=== PATIENT | female | born 1960 | race Caucasian/White ===

== ENCOUNTER 2023-09-17 18:37 | Inpatient (IN) ==
[2023-09-17] MEDS ORDERED: SODIUM CHLORIDE 0.9% 1,000 ML IV ONE (18:51)
--- NOTE | 2023-09-17 18:52 | Emergency Department Note ---
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 The patient reports that she was in the shower and began to feel lightheaded but does not recall how long he may have been out. She denies any pain in her head neck, chest, back or abdomen. She simply reports ongoing sensation of feeling sick to her stomach. The patient is scheduled to have a PEG tube placed later this week to help manage her symptoms given her inability to maintain nutrition. Patient denies any fevers, cough, congestion, chest pain or shortness of breath. She reports she has been having ongoing diarrhea which is unchanged patient has any urinary symptoms. On my evaluation the patient is uncomfortable no acute distress, afebrile with blood pressure 90s/60s and vital signs otherwise stable. She appears clinically dry. Abdomen is nontender. She has no focal neurologic deficits. EKG without overt acute ischemia. Chest x-ray negative for acute cardio pulmonary process per my preliminary review. WBC, H/H and platelets within normal limits. ANC is within normal limits. There is lymphopenia 0.34. Creatinine 1.4, consistent the patient clinically d ry appearance. Chemistry without metabolic acidosis. Potassium 3.2 and magnesium 1.4 with IV repletion initiated. LFTs are unremarkable. High- sensitivity troponin 8.5, within normal limits. CPK within normal limits. TSH within normal limits. CT of the head negative for acute abnormalities. CT of cervical spine was also unremarkable. CT of the chest negative for PE or acute process otherwise. CT of the pelvis also negative for acute process. Upon evaluation patient was resting comfortably with some improvement though still weak and so the patient and daughter at the bedside agree with plan for admission for further management. Case was [place] [facility] [place] who will evaluate the patient for admission. Triage Nursing notes reviewed and agree them. Prior/outside medical records reviewed Vital Signs: reviewed Differential diagnosis: Vasovagal event, dehydration, infection, hypoglycemia, electrolyte abnormalities, cardiac sources, intracerebral event, pulmonary embolism, seizure, toxicologic, neurologic, as well as other pathologies. ER treatment provided: See below. Diagnostics interpreted by me: ECG: Normal sinus rhythm, 68 bpm, no ectopy, no overt ST elevation or depression, QTc 438, QRS 90 Cardiac Monitoring: An order for continuous cardiac monitoring was placed and demonstrated Normal sinus rhythm, 68 bpm, no ectopy Laboratory studies: See below Imaging studies: See below Consultation(s): Case was discussed with Dr. Elkins [facility] hospitalist, who will evaluate the patient for admission. 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 The patient reports that she was in the shower and began to feel lightheaded but does not recall how long he may have been out. She denies any pain in her head neck, chest, back or abdomen. She simply reports ongoing sensation of feeling sick to her stomach. The patient is scheduled to have a PEG tube placed later this week to help manage her symptoms given her inability to maintain nutrition. Patient denies any fevers, cough, congestion, chest pain or shortness of breath. She reports she has been having ongoing diarrhea which is unchanged patient has any urinary symptoms. ROS: See above HPI for pertinent positives & negatives. A total of 10 systems reviewed and were otherwise negative. VITALS:See Below PHYSICAL EXAMINATION: GENERAL: Awake, alert, fatigued-appearing, in no distress HENT: Normocephalic, atraumatic. Oropharynx with dry mucous membranes and otherwise unremarkable. EYES: Normal conjunctiva. Sclera non-icteric. EOMI. No nystamgus. PEARRL. NECK: Supple. No nuchal rigidity. FROM. No JVD. RESPIRATORY: Clear to auscultation. CARDIAC: Regular rate, normal rhythm. Extremities warm and well perfused. Pulses equal. ABDOMEN: Soft, non-distended. No tenderness to palpation. No rebound or guarding. No masses. RECTAL: Deferred. MUSCULOSKELETAL: Chest examination reveals no tenderness. The back is symmetrical on inspection without obvious abnormality. There is no CVA tenderness to palpation. No joint edema. LOWER EXTREMITIES: Calves are equal size bilaterally and non-tender. No edema. No discoloration. NEURO: Normal sensorium. No sensory or motor deficits noted. 5/5 strength and SILT x 4 extremities. Cerebellar function intact including [id number], alternating palms, [id number]. SKIN: No rash or jaundice noted. Calos Resendiz MD Past Med/Surg History Medical History Anemia blood count dropping Fatty liver GERD (gastroesophageal reflux disease) Kidney stones x2 current/no problems. Nausea Throat cancer and tongue cancer dx: Jun 2023. current chemo and radiation. Tremor Trouble swallowing mild improvement Surgical History History of colonoscopy History of esophagogastroduodenoscopy (EGD) History of laryngoscopy direct with biopsy of left tongue base mass-07/21/23-Dr. Cunningham History of repair of hiatal hernia x 2 History of total abdominal hysterectomy and bilateral salpingo-oophorectomy Family History Mother Alzheimer disease Father No problems noted. Sister No problems noted. Brother , Half sibling Heart disease Sister No problems noted. 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 [employer]; How many Children do You have: 4 Feels Safe at Home: Yes Childhood Exposure to Second-Hand Smoke: Yes (Dad smoked; ) Assistive Devices: Glasses Allergies Allergies Allergy/AdvReac Type Severity Reaction Status Date / Time No Known Allergies Allergy Verified 09/15/23 14:03 Home Meds Home Medications Medication Instructions Recorded Confirmed acetaminophen 325 mg tablet 325 mg PO QID PRN Pain 07/14/23 09/15/23 (Tylenol) omeprazole 20 mg capsule,delayed 20 mg PO QAM 07/14/23 09/15/23 release propranolol 60 mg tablet 60 mg PO QAM 07/14/23 09/15/23 Magic Mouthwash 300 mL mouthwash 10 ml mucous membrane UD PRN 09/15/23 09/15/23 dysphagia olanzapine 2.5 mg tablet 2.5 mg PO UD 09/15/23 09/15/23 ondansetron HCl 8 mg tablet 8 mg PO Q8 PRN n/v 09/15/23 09/15/23 Results & Data (ED) Vital Signs Vital Signs - 24 hr 09/17/23 18:41 09/17/23 18:46 09/17/23 18:46 Temperature 36.3 C L Temperature Source Oral Pulse Rate 72 Pulse Rate [Apical] Pulse Rate from SpO2 Sensor Pulse Rhythm Regular Pulse Rhythm [Apical] Pulse Strength Normal Pulse Strength [Apical] Respiratory Rate 20 Respiratory Effort / Characteristics Non-Labored Spontaneous Respiratory Depth Normal Respiratory Pattern Regular Blood Pressure 93/67 L Blood Pressure [Left Arm] Blood Pressure Mean 75 Blood Pressure Mean [Left Arm] Blood Pressure Position Sitting Blood Pressure Position [Left Arm] Pulse Oximetry 97 98 Oxygen Delivery Method Room Air Room Air Room Air Sepsis Recent Fever Within 48 Hours No Sepsis New/Unexplained Change in Mental Status No Sepsis Action Taken by Nursing No Action Required 09/17/23 19:19 09/17/23 19:20 09/17/23 18:55 Temperature Temperature Source Pulse Rate 66 Pulse Rate [Apical] Pulse Rate from SpO2 Sensor Pulse Rhythm Pulse Rhythm [Apical] Pulse Strength Pulse Strength [Apical] Respiratory Rate Respiratory Effort / Characteristics Non-Labored Respiratory Depth Normal Respiratory Pattern Blood Pressure Blood Pressure [Left Arm] Blood Pressure Mean Blood Pressure Mean [Left Arm] Blood Pressure Position Blood Pressure Position [Left Arm] Pulse Oximetry 97 Oxygen Delivery Method Room Air Sepsis Recent Fever Within 48 Hours Sepsis New/Unexplained Change in Mental Status Sepsis Action Taken by Nursing 09/17/23 18:56 09/17/23 19:00 09/17/23 19:10 Temperature Temperature Source Pulse Rate 71 70 71 Pulse Rate [Apical] Pulse Rate from SpO2 Sensor Pulse Rhythm Pulse Rhythm [Apical] Pulse Strength Pulse Strength [Apical] Respiratory Rate 21 18 17 Respiratory Effort / Characteristics Respiratory Depth Respiratory Pattern Blood Pressure Blood Pressure [Left Arm] Blood Pressure Mean Blood Pressure Mean [Left Arm] Blood Pressure Position Blood Pressure Position [Left Arm] Pulse Oximetry Oxygen Delivery Method Sepsis Recent Fever Within 48 Hours Sepsis New/Unexplained Change in Mental Status Sepsis Action Taken by Nursing 09/17/23 19:20 09/17/23 19:30 09/17/23 19:36 Temperature Temperature Source Pulse Rate 63 63 71 Pulse Rate [Apical] Pulse Rate from SpO2 Sensor 71 Pulse Rhythm Pulse Rhythm [Apical] Pulse Strength Pulse Strength [Apical] Respiratory Rate 18 20 19 Respiratory Effort / Characteristics Respiratory Depth Respiratory Pattern Blood Pressure Blood Pressure [Left Arm] Blood Pressure Mean Blood Pressure Mean [Left Arm] Blood Pressure Position Blood Pressure Position [Left Arm] Pulse Oximetry 100 Oxygen Delivery Method Sepsis Recent Fever Within 48 Hours Sepsis New/Unexplained Change in Mental Status Sepsis Action Taken by Nursing 09/17/23 19:36 09/17/23 19:40 09/17/23 19:50 Temperature Temperature Source Pulse Rate 72 73 Pulse Rate [Apical] Pulse Rate from SpO2 Sensor 72 73 Pulse Rhythm Pulse Rhythm [Apical] Pulse Strength Pulse Strength [Apical] Respiratory Rate 20 18 Respiratory Effort / Characteristics Respiratory Depth Respiratory Pattern Blood Pressure 114/68 Blood Pressure [Left Arm] Blood Pressure Mean 86 Blood Pressure Mean [Left Arm] Blood Pressure Position Blood Pressure Position [Left Arm] Pulse Oximetry 98 97 Oxygen Delivery Method Sepsis Recent Fever Within 48 Hours Sepsis New/Unexplained Change in Mental Status Sepsis Action Taken by Nursing 09/17/23 20:00 09/17/23 20:00 09/17/23 20:10 Temperature Temperature Source Pulse Rate 75 73 Pulse Rate [Apical] Pulse Rate from SpO2 Sensor 75 74 Pulse Rhythm Pulse Rhythm [Apical] Pulse Strength Pulse Strength [Apical] Respiratory Rate 16 14 Respiratory Effort / Characteristics Respiratory Depth Respiratory Pattern Blood Pressure 109/72 Blood Pressure [Left Arm] Blood Pressure Mean 78 Blood Pressure Mean [Left Arm] Blood Pressure Position Blood Pressure Position [Left Arm] Pulse Oximetry 98 99 Oxygen Delivery Method Sepsis Recent Fever Within 48 Hours Sepsis New/Unexplained Change in Mental Status Sepsis Action Taken by Nursing 09/17/23 20:20 09/17/23 20:47 09/17/23 20:50 Temperature Temperature Source Pulse Rate 70 70 67 Pulse Rate [Apical] Pulse Rate from SpO2 Sensor 70 71 69 Pulse Rhythm Pulse Rhythm [Apical] Pulse Strength Pulse Strength [Apical] Respiratory Rate 24 14 19 Respiratory Effort / Characteristics Respiratory Depth Respiratory Pattern Blood Pressure Blood Pressure [Left Arm] Blood Pressure Mean Blood Pressure Mean [Left Arm] Blood Pressure Position Blood Pressure Position [Left Arm] Pulse Oximetry 99 97 98 Oxygen Delivery Method Sepsis Recent Fever Within 48 Hours Sepsis New/Unexplained Change in Mental Status Sepsis Action Taken by Nursing 09/17/23 21:30 09/17/23 20:55 09/17/23 20:55 Temperature Temperature Source Pulse Rate 66 Pulse Rate [Apical] 70 Pulse Rate from SpO2 Sensor 65 Pulse Rhythm Pulse Rhythm [Apical] Regular Pulse Strength Pulse Strength [Apical] Normal Respiratory Rate 16 14 Respiratory Effort / Characteristics Non-Labored Spontaneous Respiratory Depth Normal Respiratory Pattern Regular Blood Pressure 112/62 Blood Pressure [Left Arm] 120/63 Blood Pressure Mean 68 Blood Pressure Mean [Left Arm] 82 Blood Pressure Position Blood Pressure Position [Left Arm] Semi-fowlers Pulse Oximetry 94 97 Oxygen Delivery Method Room Air Sepsis Recent Fever Within 48 Hours Sepsis New/Unexplained Change in Mental Status Sepsis Action Taken by Nursing 09/17/23 21:00 09/17/23 21:00 09/17/23 21:10 Temperature Temperature Source Pulse Rate 70 65 Pulse Rate [Apical] Pulse Rate from SpO2 Sensor 70 66 Pulse Rhythm Pulse Rhythm [Apical] Pulse Strength Pulse Strength [Apical] Respiratory Rate 22 26 H Respiratory Effort / Characteristics Respiratory Depth Respiratory Pattern Blood Pressure 122/68 Blood Pressure [Left Arm] Blood Pressure Mean 102 Blood Pressure Mean [Left Arm] Blood Pressure Position Blood Pressure Position [Left Arm] Pulse Oximetry 97 98 Oxygen Delivery Method Sepsis Recent Fever Within 48 Hours Sepsis New/Unexplained Change in Mental Status Sepsis Action Taken by Nursing 09/17/23 21:20 09/17/23 21:30 09/17/23 21:30 Temperature Temperature Source Pulse Rate 68 67 Pulse Rate [Apical] Pulse Rate from SpO2 Sensor 68 68 Pulse Rhythm Pulse Rhythm [Apical] Pulse Strength Pulse Strength [Apical] Respiratory Rate 22 21 Respiratory Effort / Characteristics Respiratory Depth Respiratory Pattern Blood Pressure 120/63 Blood Pressure [Left Arm] Blood Pressure Mean 89 Blood Pressure Mean [Left Arm] Blood Pressure Position Blood Pressure Position [Left Arm] Pulse Oximetry 96 95 Oxygen Delivery Method Sepsis Recent Fever Within 48 Hours Sepsis New/Unexplained Change in Mental Status Sepsis Action Taken by Nursing 09/17/23 21:40 09/17/23 21:50 Temperature Temperature Source Pulse Rate 67 70 Pulse Rate [Apical] Pulse Rate from SpO2 Sensor 67 70 Pulse Rhythm Pulse Rhythm [Apical] Pulse Strength Pulse Strength [Apical] Respiratory Rate 22 21 Respiratory Effort / Characteristics Respiratory Depth Respiratory Pattern Blood Pressure Blood Pressure [Left Arm] Blood Pressure Mean Blood Pressure Mean [Left Arm] Blood Pressure Position Blood Pressure Position [Left Arm] Pulse Oximetry 94 93 Oxygen Delivery Method Sepsis Recent Fever Within 48 Hours Sepsis New/Unexplained Change in Mental Status Sepsis Action Taken by Nursing Laboratory Data Attestation: I reviewed the patient's lab results. 09/17/23 19:00 09/17/23 19:00 Lab Results 09/17/23 09/17/23 09/17/23 Range/Units 19:00 19:00 19:00 WBC 5.52 (4.8-10.8) K/ul RBC 4.77 (4.20-5.40) M/uL Hgb 14.4 (12.0-16.0) g/dl Hct 41.4 (37.0-47.0) % MCV 86.8 (80.0-100.0) fL MCH 30.2 (25.0-34.0) pg MCHC 34.8 (32.0-36.0) g/dL RDW Std Deviation 40.0 (36.4-46.3) fL RDW Coeff of Maria Eugenia 13.1 (11.5-14.5) % Plt Count 198 (130-400) K/uL MPV 8.8 L (9.4-12.4) fL Immature Gran % (Auto) 0.2 % Neut % (Auto) 85.8 % Lymph % (Auto) 6.2 % [place] % (Auto) 6.5 % Eos % (Auto) 0.9 % Baso % (Auto) 0.4 % Neut # (Auto) 4.74 (1.40-6.50) K/uL Lymph # (Auto) 0.34 L (1.20-3.40) K/uL [place] # (Auto) 0.36 (0.11-0.59) K/uL Eos # (Auto) 0.05 (0.00-0.50) K/uL Baso # (Auto) 0.02 (0.00-0.20) K/uL Immature Gran # (Auto) 0.01 (0.01-0.20) K/uL PT 10.9 (9.0-12.0) Seconds INR 1.0 (0.9-1.1) APTT 20.2 L (21.0-31.0) Seconds PTT Ratio 0.7 Sodium 135 L (136-145) mmol/L Potassium 3.2 L (3.5-5.1) mmol/L Chloride 96 L (98-107) mmol/L Carbon Dioxide 29 (21-32) mmol/L Anion Gap 10 (3-11) BUN 19 (6-23) mg/dl Creatinine 1.40 H (0.6-1.2) mg/dl Est Cr Clr Drug Dosing 44.4 ml/min Est GFR ( Amer) 46.6 ml/min Est GFR (Non-Af Amer) 40.2 ml/min BUN/Creatinine Ratio 13.6 (10-20) Glucose 135 H (70-99(Fasting)) mg/dl Calcium 9.9 (8.6-10.3) mg/dl Phosphorus 3.7 (2.5-4.9) mg/dl Magnesium 1.4 L (1.7-2.4) mg/dl Total Bilirubin 1.4 H (0.2-1.0) mg/dl AST 24 (13-39) U/L ALT 33 (7-52) U/L Alkaline Phosphatase 92 (34-104) U/L Total Creatine Kinase 30 (26-192) U/L Troponin I High Sens 8.5 (0-14) pg/ml Total Protein 7.8 (6.0-8.3) gm/dl Albumin 4.5 (3.4-5.0) gm/dl Globulin 3.3 (2.5-4.0) gm/dl Albumin/Globulin Ratio 1.4 (0.9-2) TSH 2.216 (0.300-4.500) uIu/ml Administered Medications Magnesium Sulfate/Dextrose (Magnesium Sulfate / D5w) 1 gm in 100 mls @ 100 mls/hr IV Q1H ELA Stop: 09/17/23 22:18 Last Admin: 09/17/23 21:23 Dose: 100 mls/hr Documented By: Infusion: 09/17/23 21:23 Dose: 100 mls/hr Documented By: Admin: 09/17/23 20:54 Dose: 100 mls/hr Documented By: DELFIN Discontinued Medications Sodium Chloride (Nss) 1,000 mls @ 999 mls/hr IV .Q1H1M ONE Stop: 09/17/23 19:51 Last Infusion: 09/17/23 20:30 Dose: 0 mls/hr Documented By: Admin: 09/17/23 19:23 Dose: 999 mls/hr Documented By: DELFIN Famotidine (Pepcid 20mg Iv Push) 20 mg in 5 mls @ 2.5 mls/min IV NOW STA Stop: 09/17/23 19:14 Last Admin: 09/17/23 19:27 Dose: 2.5 mls/min Documented By: SHELTON Promethazine HCl (Phenergan) 25 mg in 51 mls @ 204 mls/hr IV NOW STA Stop: 09/17/23 19:30 Last Infusion: 09/17/23 19:50 Dose: 0 mls/hr Documented By: Admin: 09/17/23 19:30 Dose: 204 mls/hr Documented By: SHELTON Ioversol (Optiray 320 500ml) 110 ml IV ONCE ONE Stop: 09/17/23 20:34 Last Admin: 09/17/23 20:33 Dose: 110 ml Documented By: MILAD Imaging Data Radiologist's Impression: Chest X-Ray 09/17/23 18:46 XR chest 1V portable CLINICAL HISTORY: Chest pain, nonspecific TECHNIQUE: Single frontal radiograph of the chest was obtained. Comparison: None available at the time of this dictation. FINDINGS: No lines and tubes are seen. The cardiomediastinal silhouette is normal. The leigh ngs are clear. No evidence of pleural effusion or pneumothorax. IMPRESSION: No acute chest disease. ACT 112: Negative or not required by law. Electronically signed by: Nixon Charles M.D. 09/17/2023 8:12 PM Abdomen/Pelvis CT 09/17/23 19:13 Exam(s): CT ABDOMEN + PELVIS With Contrast IV Amt: 110ml 320omni EXAM: CT Abdomen and Pelvis With Intravenous Contrast CLINICAL HISTORY: Reason for exam: syncope, abd pain, n/v, SCC tongue. TECHNIQUE: Axial computed tomography images of the abdomen and pelvis with intravenous contrast. CTDI is 26.44 mGy and DLP is 1541.41 mGy-cm. Automated exposure control was utilized for the study. A dose lowering technique was utilized adhering to the principles of ALARA. CONTRAST: Patient received 110ml 320omni of IV contrast COMPARISON: No relevant prior studies available. FINDINGS: Lung bases: Unremarkable. No mass. No consolidation. ABDOMEN: Liver: Hepatic steatosis. Gallbladder and bile ducts: Unremarkable. No calcified stones. No ductal dilation. Pancreas: Unremarkable. No mass. No ductal dilation. Spleen: Unremarkable. No splenomegaly. Adrenals: Unremarkable. No mass. Kidneys and ureters: Nonobstructing 3 mm RIGHT lower pole renal stone. RIGHT renal cyst measures 1 cm. Stomach and bowel: Diverticulosis, without acute diverticulitis. No small bowel obstruction. No free intraperitoneal air. PELVIS: Appendix: No findings to suggest acute appendicitis. Bladder: Unremarkable. No mass. Reproductive: Hysterectomy. ABDOMEN and PELVIS: Intraperitoneal space: Unremarkable. No free air. No significant fluid collection. Bones/joints: No acute fracture. No dislocation. Soft tissues: Ventral abdominal wall hernia contains peritoneal fat and measures 2.1 x 6.5 cm. Vasculature: Unremarkable. No abdominal aortic aneurysm. Lymph nodes: Unremarkable. No enlarged lymph nodes. IMPRESSION: 1. Hepatic steatosis. 2. Nonobstructing 3 mm RIGHT lower pole renal stone. 3. Hysterectomy. 4. Diverticulosis, without acute diverticulitis. No small bowel obstruction. No free intraperitoneal air. Electronically signed by: Raudel Arevalo MD 09/17/23 21:[address] 09/17/23 19:13 Exam(s): CT C SPINE EXAM: CT Cervical Spine Without Intravenous Contrast CLINICAL HISTORY: Reason for exam: syncope, pain, SCC tongue. TECHNIQUE: Axial computed tomography images of the cervical spine without intravenous contrast. CTDI is 22.96 mGy and DLP is 405 mGy-cm. Automated exposure control was utilized for the study. A dose lowering technique was utilized adhering to the principles of ALARA. COMPARISON: No relevant prior studies available. FINDINGS: The vertebral body heights are maintained. The craniocervical junction is intact. The atlanto-dens interval is maintained. The dens is intact. There is no spondylolisthesis. Multilevel cervical spondylosis and degenerative disc disease. Straightening of the cervical lordosis. The unenhanced neck soft tissues are grossly unremarkable. The visualized lung apices are grossly clear. IMPRESSION: No acute fracture or subluxation of the cervical spine. Electronically signed by: Raudel Arevalo MD 09/17/23 20:58 PM Chest CTA 09/17/23 19:13 Exam(s): CTA CHEST IV Amt: 110ml 320omni EXAM: CT Angiography Chest With Intravenous Contrast CLINICAL HISTORY: Reason for exam: syncope, SCC tongue, r/o PE. TECHNIQUE: Axial computed tomographic angiography images of the chest with intravenous contrast. CTDI is 24.59 mGy and DLP is 763.18 mGy-cm. Automated exposure control was utilized for the study. A dose lowering technique was utilized adhering to the principles of ALARA. MIP reconstructed images were created and reviewed. COMPARISON: No relevant prior studies available. FINDINGS: Pulmonary arteries: Unremarkable. No pulmonary embolism. Aorta: No acute findings. No thoracic aortic aneurysm. Lungs: Unremarkable. No mass. No consolidation. Pleural space: Unremarkable. No significant effusion. No pneumothorax. Heart: Unremarkable. No cardiomegaly. No significant pericardial effusion. No evidence of RV dysfunction. Bones/joints: Degenerative changes of the spine. No acute fracture. No dislocation. Soft tissues: Unremarkable. Lymph nodes: Unremarkable. No enlarged lymph nodes. IMPRESSION: No acute findings in the visualized arteries of the chest. Electronically signed by: Raudel Arevalo MD 09/17/23 20:[address] 09/17/23 19:13 Exam(s): CT HEAD Without Contrast EXAM: CT Head Without Intravenous Contrast CLINICAL HISTORY: Reason for exam: syncope, SCC tongue. TECHNIQUE: Axial computed tomography images of the head/brain without intravenous contrast. CTDI is 37.32 mGy and DLP is 624.41 mGy-cm. Automated exposure control was utilized for the study. A dose lowering technique was utilized adhering to the principles of ALARA. COMPARISON: No relevant prior studies available. FINDINGS: No acute intracranial hemorrhage. No midline shift or mass effect. The territorial casey-white matter differentiation is maintained throughout. Age-related cerebral volume loss. Periventricular and subcortical white matter hypoattenuation, consistent with chronic microangiopathy. The visualized orbits appear grossly unremarkable. The calvarium is intact. The visualized paranasal sinuses and mastoid air cells are grossly clear. IMPRESSION: No acute intracranial hemorrhage, midline shift, or mass effect. Electronically signed by: Raudel Arevalo MD 09/17/23 20:56 PM Discharge Plan Visit Data Chief Complaint: Syncope Stated Complaint: SYNCOPE, DECREASED PO INTAKE ED Provider: Calos Resendiz Discharge Problem: Syncope, Acute kidney injury, Hypomagnesemia, Hypokalemia Forms Stand Alone Forms: My [facility] [employer] Prescriptions Prescriptions: No Action acetaminophen [Tylenol] 325 mg Tablet 325 mg PO QID PRN (Reason: Pain) propranolol 60 mg Tablet 60 mg PO QAM omeprazole 20 mg Capsule,Delayed Release(Dr/Ec) 20 mg PO QAM Magic Mouthwash 300 mL mouthwash 10 ml mucous membrane UD PRN (Reason: dysphagia) Patient Comments: haven't used in awhile ondansetron HCl [Zofran] 8 mg Tablet 8 mg PO Q8 PRN (Reason: n/v) olanzapine 2.5 mg Tablet 2.5 mg PO UD Patient Comments: one on day of chemo and one per day for 3 days after chemo. Referrals Referrals: Alina Ryder M.D. [Primary Care Provider] -
[2023-09-17] MEDS ORDERED: FAMOTIDINE 20MG IV PUSH 20 MG/5 ML SYR IV STA (19:13)
[2023-09-17] MEDS ORDERED: PROMETHAZINE 25 MG/51 ML BAG IV STA (19:16)
[2023-09-17 19:37] LABS: Basophils # (auto) 0.02 K/uL (0.00-0.20); Basophils % (auto) 0.4 %; Eosinophils # (auto) 0.05 K/uL (0.00-0.50); Eosinophils % (auto) 0.9 %; Hematocrit (blood only) 41.4 % (37.0-47.0); Hemoglobin 14.4 g/dl (12.0-16.0); Immature Granulocytes # (auto) 0.01 K/uL (0.01-0.20); Immature Granulocytes % (auto) 0.2 %; Lymphocytes # (auto) 0.34 K/uL (1.20-3.40); Lymphocytes % (auto) 6.2 %; Mean Corpuscular Hemoglobin 30.2 pg (25.0-34.0); Mean Corpuscular Hgb Conc 34.8 g/dL (32.0-36.0); Mean Corpuscular Volume 86.8 fL (80.0-100.0); Mean Platelet Volume 8.8 fL (9.4-12.4); Monocytes # (auto) 0.36 K/uL (0.11-0.59); Monocytes % (auto) 6.5 %; Neutrophils # (auto) 4.74 K/uL (1.40-6.50); Neutrophils % (auto) 85.8 %; Platelet Count 198 K/uL (130-400); RDW Coefficient of Variation 13.1 % (11.5-14.5); Red Blood Count 4.77 M/uL (4.20-5.40); White Blood Count 5.52 K/ul (4.8-10.8)
[2023-09-17 19:59] LABS: Partial Thromboplastin Ratio 0.7; Partial Thromboplastin Time 20.2 Seconds (21.0-31.0); Prothrombin Time 10.9 Seconds (9.0-12.0)
[2023-09-17 20:04] LABS: Albumin Globulin Ratio 1.4 (0.9-2); Albumin Level 4.5 gm/dl (3.4-5.0); BUN Creatinine Ratio 13.6 (10-20); Bilirubin,Total 1.4 mg/dl (0.2-1.0); Calcium 9.9 mg/dl (8.6-10.3); Creatinine Clr Calc Pharmacy 44.4 ml/min; Est GFR (African American) 46.6 ml/min; Est GFR (Non-African American) 40.2 ml/min; Globulin 3.3 gm/dl (2.5-4.0); Magnesium 1.4 mg/dl (1.7-2.4); Phosphorus 3.7 mg/dl (2.5-4.9); Potassium 3.2 mmol/L (3.5-5.1); Total Protein 7.8 gm/dl (6.0-8.3); Troponin I High Sensitivity 8.5 pg/ml (0-14)
[2023-09-17 20:05] LABS: Thyroid Stimulating Hormone 2.216 uIu/ml (0.300-4.500)
--- NOTE | 2023-09-17 20:14 | XRay Report ---
XR chest 1V portable CLINICAL HISTORY: Chest pain, nonspecific TECHNIQUE: Single frontal radiograph of the chest was obtained. Comparison: None available at the time of this dictation. FINDINGS: No lines and tubes are seen. The cardiomediastinal silhouette is normal. The lungs are clear. No evid ence of pleural effusion or pneumothorax. IMPRESSION: No acute chest disease. ACT 112: Negative or not required by law. Electronically signed by: Nixon Charles M.D. 09/17/2023 8:12 PM
[2023-09-17] MEDS ORDERED: OPTIRAY 320 500ml IV ONE (20:33)
[2023-09-17] MEDS: MAGNESIUM SULFATE / D5W 1 GM/100 ML BAG IV SCH ×4 (20:54→23:42)
--- NOTE | 2023-09-17 20:57 | CT Scan Report ---
Exam(s): CT HEAD Without Contrast EXAM: CT Head Without Intravenous Contrast CLINICAL HISTORY: Reason for exam: syncope, SCC tongue. TECHNIQUE: Axial computed tomography images of the head/brain without intravenous contrast. CTDI is 37.32 mGy and DLP is 624.41 mGy-cm. Automated exposure control was utilized for the study. A dose lowering technique was utilized adhering to the principles of ALARA. COMPARISON: No relevant prior studies available. FINDINGS: No acute intracranial hemorrhage. No midline shift or mass effect. The territorial casey-white matter differentiation is maintained throughout. Age-related cerebral volume loss. Periventricular and subcortical white matter hypoattenuation, consistent with chronic microangiopathy. The visualized orbits appear grossly unremarkable. The calvarium is intact. The visualized paranasal sinuses and mastoid air cells are grossly clear. IMPRESSION: No acute intracranial hemorrhage, midline shift, or mass effect. Electronically signed by: Raudel Arevalo MD 09/17/23 20:56 PM
--- NOTE | 2023-09-17 20:59 | CT Scan Report ---
Exam(s): CT C SPINE EXAM: CT Cervical Spine Without Intravenous Contrast CLINICAL HISTORY: Reason for exam: syncope, pain, SCC tongue. TECHNIQUE: Axial computed tomography images of the cervical spine without intravenous contrast. CTDI is 22.96 mGy and DLP is 405 mGy-cm. Automated exposure control was utilized for the study. A dose lowering technique was utilized adhering to the principles of ALARA. COMPARISON: No relevant prior studies available. FINDINGS: The vertebral body heights are maintained. The craniocervical junction is intact. The atlanto-dens interval is maintained. The dens is intact. There is no spondylolisthesis. Multilevel cervical spondylosis and degenerative disc disease. Straightening of the cervical lordosis. The unenhanced neck soft tissues are grossly unremarkable. The visualized lung apices are grossly clear. IMPRESSION: No acute fracture or subluxation of the cervical spine. Electronically signed by: Raudel Arevalo MD 09/17/23 20:58 PM
--- NOTE | 2023-09-17 21:00 | CT Scan Report ---
Exam(s): CTA CHEST IV Amt: 110ml 320omni EXAM: CT Angiography Chest With Intravenous Contrast CLINICAL HISTORY: Reason for exam: syncope, SCC tongue, r/o PE. TECHNIQUE: Axial computed tomographic angiography images of the chest with intravenous contrast. CTDI is 24.59 mGy and DLP is 763.18 mGy-cm. Automated exposure control was utilized for the study. A dose lowering technique was utilized adhering to the principles of ALARA. MIP reconstructed images were created and reviewed. COMPARISON: No relevant prior studies available. FINDINGS: Pulmonary arteries: Unremarkable. No pulmonary embolism. Aorta: No acute findings. No thoracic aortic aneurysm. Lungs: Unremarkable. No mass. No consolidation. Pleural space: Unremarkable. No significant effusion. No pneumothorax. Heart: Unremarkable. No cardiomegaly. No significant pericardial effusion. No evidence of RV dysfunction. Bones/joints: Degenerative changes of the spine. No acute fracture. No dislocation. Soft tissues: Unremarkable. Lymph nodes: Unremarkable. No enlarged lymph nodes. IMPRESSION: No acute findings in the visualized arteries of the chest. Electronically signed by: Raudel Arevalo MD 09/17/23 20:58 PM
--- NOTE | 2023-09-17 21:31 | CT Scan Report ---
Exam(s): CT ABDOMEN + PELVIS With Contrast IV Amt: 110ml 320omni EXAM: CT Abdomen and Pelvis With Intravenous Contrast CLINICAL HISTORY: Reason for exam: syncope, abd pain, n/v, SCC tongue. TECHNIQUE: Axial computed tomography images of the abdomen and pelvis with intravenous contrast. CTDI is 26.44 mGy and DLP is 1541.41 mGy-cm. Automated exposure control was utilized for the study. A dose lowering technique was utilized adhering to the principles of ALARA. CONTRAST: Patient received 110ml 320omni of IV contrast COMPARISON: No relevant prior studies available. FINDINGS: Lung bases: Unremarkable. No mass. No consolidation. ABDOMEN: Liver: Hepatic steatosis. Gallbladder and bile ducts: Unremarkable. No calcified stones. No ductal dilation. Pancreas: Unremarkable. No mass. No ductal dilation. Spleen: Unremarkable. No splenomegaly. Adrenals: Unremarkable. No mass. Kidneys and ureters: Nonobstructing 3 mm RIGHT lower pole renal stone. RIGHT renal cyst measures 1 cm. Stomach and bowel: Diverticulosis, without acute diverticulitis. No small bowel obstruction. No free intraperitoneal air. PELVIS: Appendix: No findings to suggest acute appendicitis. Bladder: Unremarkable. No mass. Reproductive: Hysterectomy. ABDOMEN and PELVIS: Intraperitoneal space: Unremarkable. No free air. No significant fluid collection. Bones/joints: No acute fracture. No dislocation. Soft tissues: Ventral abdominal wall hernia contains peritoneal fat and measures 2.1 x 6.5 cm. Vasculature: Unremarkable. No abdominal aortic aneurysm. Lymph nodes: Unremarkable. No enlarged lymph nodes. IMPRESSION: 1. Hepatic steatosis. 2. Nonobstructing 3 mm RIGHT lower pole renal stone. 3. Hysterectomy. 4. Diverticulosis, without acute diverticulitis. No small bowel obstruction. No free intraperitoneal air. Electronically signed by: Raudel Arevalo MD 09/17/23 21:30 PM
--- NOTE | 2023-09-17 22:13 | History & Physical Report ---
Date of Service September 17, 2023 Assessment & Plan (1) Syncope: Plan: 62 yo female with PMHx tremors, GERD, and tongue SCC presents with syncopal event. #Syncope -Presented with syncopal event earlier this evening in the shower. She did feel she was about to faint. Suspect due to poor oral intake 2/2 chemoradiation. She was hypotensive on arrival. Low suspicion for cardiac etiology. WBC wnl. Vitals stable, afebrile. Head CT neg. Cervical spine CT neg. Chest CTA w/o PE. -EKG unremarkable; will monitor on tele -given 1L NSS in ED. Continue on maintenance. #YING -Cr 1.4 on admission. Baseline wnl. Likely due to dehydration as above. Cont. IVF. #Hypokalemia -K 3.2 on admission. Replenished. Recheck am. #Hypomagnesemia -Mag 1.4 on admission. Replenished. Recheck am. #SCC of Tongue -[facility] Recent diagnosis in 2022 with subsequent initiation of chemoradiation in July. Most recent treatment was 09/14. Poor oral intake 2/2 to this as she has persistent nausea and vomiting. Scheduled for PEG tube placement 09/20/23. -zofran prn for nausea -olanzapine 4x/wk (treatment day and 3 days afterwards). Dose given tonight, will not be due till next treatment. #GERD -cont. PPI #Tremors -cont. propranolol DVT ppx: heparin SQ FEN/GI: clears (d/t nausea) Code Status: full Dispo: med tele (2) Primary squamous cell carcinoma of base of tongue: (3) GERD (gastroesophageal reflux disease): (4) Acute kidney injury: (5) Hypomagnesemia: (6) Hypokalemia: (7) Tremor: History of Present Illness Chief Complaint: syncope Primary Care Provider: Alina Ryder 62 yo female with PMHx tremors, GERD, and tongue SCC presents with syncopal event. Earlier this evening patient was in the shower and had a syncopal event. She did feel that she was going to pass out and was able to brace herself. Her is also beside her. She is not sure but believes she was unconscious for couple of minutes. When she came about, she did feel weak but was not confused. She recently started chemoradiation for squamous cell carcinoma of the tongue and since treatments has been experiencing constant nausea and vomiting. She has not been able to intake much food or liquid due to the symptoms. She is scheduled to get a PEG tube placed later this week to resolve this matter. Otherwise denies fever, headache, chest pain, shortness of breath, abdominal pain, dysuria, extremity numbness/tingling. Last BM was a few days ago after chemoradiation. No significant heart history. Allergies Allergy/AdvReac Type Severity Reaction Status Date / Time No Known Allergies Allergy Verified 09/15/23 14:03 Home Medications Medication Instructions Recorded Confirmed Type acetaminophen 325 mg tablet 325 mg PO QID PRN Pain 07/14/23 09/15/23 History (Tylenol) omeprazole 20 mg capsule,delayed 20 mg PO QAM 07/14/23 09/15/23 History release Magic Mouthwash 300 mL mouthwash 10 ml mucous membrane UD PRN 09/15/23 09/15/23 History dysphagia olanzapine 2.5 mg tablet 2.5 mg PO UD 09/15/23 09/15/23 History ondansetron HCl 8 mg tablet 8 mg PO Q8 PRN n/v 09/15/23 09/15/23 History propranolol 60 mg capsule,24 60 mg PO DAILY 09/18/23 09/18/23 History hr,extended release Past Med/Surg History Medical History Anemia blood count dropping Fatty liver GERD (gastroesophageal reflux disease) Kidney stones x2 current/no problems. Nausea Pre-op testing Throat cancer and tongue cancer dx: Jun 2023. current chemo and radiation. Tremor Trouble swallowing mild improvement Surgical History History of colonoscopy History of esophagogastroduodenoscopy (EGD) History of laryngoscopy direct with biopsy of left tongue base mass-07/21/23-Dr. Cunningham History of repair of hiatal hernia x 2 History of total abdominal hysterectomy and bilateral salpingo-oophorectomy Family History Mother Alzheimer disease Father No problems noted. Sister No problems noted. Brother , Half sibling Heart disease Sister No problems noted. 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 AOx.3 Vitals as above. HEENT: No scleral injection or discharge.Dry mucous membranes. Neck: Supple without lymphadenopathy or thyromegaly. Trachea midline. Lungs: Clear to auscultation bilaterally with good effort. No wheezes/rales/rhonchi. Cardiac: Regular rate and rhythm.No murmurs. 1+ lower extremity edema. 2+ distal peripheral pulses. Abdomen: Bowel sounds present. Soft, nontender, and nondistended.No guarding. No hepatosplenomegaly. MSK: No cyanosis or clubbing. Extremities motor strength 5/5. Skin: No rashes, warm, dry. Neurologic: no focal deficits Results & Data Results & Data Vital Signs (Past 12 Hours) Vital Signs Temp Pulse Pulse Resp BP BP Pulse Ox 09/17/23 21:50 70 21 93 09/17/23 21:40 67 22 94 09/17/23 21:30 67 21 95 09/17/23 21:30 120/63 09/17/23 21:20 68 22 96 09/17/23 21:10 65 26 H 98 09/17/23 21:00 70 22 97 09/17/23 21:00 122/68 09/17/23 20:55 112/62 09/17/23 20:55 66 14 97 09/17/23 21:30 70 16 120/63 94 09/17/23 20:50 67 19 98 09/17/23 20:47 70 14 97 09/17/23 20:20 70 24 99 09/17/23 20:10 73 14 99 09/17/23 20:00 75 16 98 09/17/23 20:00 109/72 09/17/23 19:50 73 18 97 09/17/23 19:40 72 20 98 09/17/23 19:36 114/68 09/17/23 19:36 71 19 100 09/17/23 19:30 63 20 09/17/23 19:20 63 18 09/17/23 19:10 71 17 09/17/23 19:00 70 18 09/17/23 18:56 71 21 09/17/23 18:55 66 09/17/23 19:19 97 09/17/23 18:46 98 09/17/23 18:46 09/17/23 18:41 36.3 C L 72 20 93/67 L 97 O2 Del Method 09/17/23 21:50 09/17/23 21:40 09/17/23 21:30 09/17/23 21:30 09/17/23 21:20 09/17/23 21:10 09/17/23 21:00 09/17/23 21:00 09/17/23 20:55 09/17/23 20:55 09/17/23 21:30 Room Air 09/17/23 20:50 09/17/23 20:47 09/17/23 20:20 09/17/23 20:10 09/17/23 20:00 09/17/23 20:00 09/17/23 19:50 09/17/23 19:40 09/17/23 19:36 09/17/23 19:36 09/17/23 19:30 09/17/23 19:20 09/17/23 19:10 09/17/23 19:00 09/17/23 18:56 09/17/23 18:55 09/17/23 19:19 Room Air 09/17/23 18:46 Room Air 09/17/23 18:46 Room Air 09/17/23 18:41 Room Air Laboratory Results Laboratory Results WBC 5.52 K/ul (4.8-10.8) 09/17/23 19:00 RBC 4.77 M/uL (4.20-5.40) 09/17/23 19:00 Hgb 14.4 g/dl (12.0-16.0) 09/17/23 19: Hct 41.4 % (37.0-47.0) 09/17/23 19: MCV 86.8 fL (80.0-100.0) 09/17/23 19: MCH 30.2 pg (25.0-34.0) 09/17/23 19: MCHC 34.8 g/dL (32.0-36.0) 09/17/23: RDW Std Deviation 40.0 fL (36.4-46.3) 09/17/23 19: RDW Coeff of Maria Eugenia 13.1 % (11.5-14.5) 09/17/23 19: Plt Count 198 K/uL (130-400) 09/17/23 19: MPV 8.8 fL (9.4-12.4) L 09/17/23 19:00 Immature Gran % (Auto) 0.2 % 09/17/23 19:00 Neut % (Auto) 85.8 % 09/17/23 19:00 Lymph % (Auto) 6.2 % 09/17/23 19:00 [place] % (Auto) 6.5 % 09/17/23 19:00 Eos % (Auto) 0.9 % 09/17/23 19: Baso % (Auto) 0.4 % 09/17/23 19: Neut # (Auto) 4.74 K/uL (1.40-6.50) 09/17/23 19:00 Lymph # (Auto) 0.34 K/uL (1.20-3.40) L 09/17/23 19:00 [place] # (Auto) 0.36 K/uL (0.11-0.59) 09/17/23 19:00 Eos # (Auto) 0.05 K/uL (0.00-0.50) 09/17/23 19:00 Baso # (Auto) 0.02 K/uL (0.00-0.20) 09/17/23 19:00 Immature Gran # (Auto) 0.01 K/uL (0.01-0.20) 09/17/23 19:00 PT 10.9 Seconds (9.0-12.0) 09/17/23 19:00 INR 1.0 (0.9-1.1) 09/17/23 19:00 APTT 20.2 Seconds (21.0-31.0) L 09/17/23 19:00 PTT Ratio 0.7 09/17/23 19:00 Sodium 135 mmol/L (136-145) L 09/17/23 19:00 Potassium 3.2 mmol/L (3.5-5.1) L 09/17/23 19:00 Chloride 96 mmol/L (98-107) L 09/17/23 19:00 Carbon Dioxide 29 mmol/L (21-32) 09/17/23 19:00 Anion Gap 10 (3-11) 09/17/23 19:00 BUN 19 mg/dl (6-23) 09/17/23 19:00 Creatinine 1.40 mg/dl (0.6-1.2) H 09/17/23 19:00 Est Cr Clr Drug Dosing 44.4 ml/min 09/17/23 19:00 Est GFR ( Amer) 46.6 ml/min 09/17/23 19:00 Est GFR (Non-Af Amer) 40.2 ml/min 09/17/23 19:00 BUN/Creatinine Ratio 13.6 (10-20) 09/17/23 19:00 Glucose 135 mg/dl (70-99(Fasting)) H 09/17/23 19:00 Calcium 9.9 mg/dl (8.6-10.3) 09/17/23 19:00 Phosphorus 3.7 mg/dl (2.5-4.9) 09/17/23 19:00 Magnesium 1.4 mg/dl (1.7-2.4) L 09/17/23 19:00 Total Bilirubin 1.4 mg/dl (0.2-1.0) H 09/17/23 19:00 AST 24 U/L (13-39) 09/17/23 19:00 ALT 33 U/L (7-52) 09/17/23 19:00 Alkaline Phosphatase 92 U/L (34-104) 09/17/23 19:00 Total Creatine Kinase 30 U/L (26-192) 09/17/23 19:00 Troponin I High Sens 8.5 pg/ml (0-14) 09/17/23 19:00 Total Protein 7.8 gm/dl (6.0-8.3) 09/17/23 19:00 Albumin 4.5 gm/dl (3.4-5.0) 09/17/23 19:00 Globulin 3.3 gm/dl (2.5-4.0) 09/17/23 19:00 Albumin/Globulin Ratio 1.4 (0.9-2) 09/17/23 19:00 TSH 2.216 uIu/ml (0.300-4.500) 09/17/23 19:00 Impressions Chest X-Ray 09/17/23 18:46 XR chest 1V portable CLINICAL HISTORY: Chest pain, nonspecific TECHNIQUE: Single frontal radiograph of the chest was obtained. Comparison: None available at the time of this dictation. FINDINGS: No lines and tubes are seen. The cardiomediastinal silhouette is normal. The lungs are clear. No evidence of pleural effusion or pneumothorax. IMPRESSION: No acute chest disease. ACT 112: Negative or not required by law. Electronically signed by: Nixon Charles M.D. 09/17/2023 8:12 PM Abdomen/Pelvis CT 09/17/23 19:13 Exam(s): CT ABDOMEN + PELVIS With Contrast IV Amt: 110ml 320omni EXAM: CT Abdomen and Pelvis With Intravenous Contrast CLINICAL HISTORY: Reason for exam: syncope, abd pain, n/v, SCC tongue. TECHNIQUE: Axial computed tomography images of the abdomen and pelvis with intravenous contrast. CTDI is 26.44 mGy and DLP is 1541.41 mGy-cm. Automated exposure control was utilized for the study. A dose lowering technique was utilized adhering to the principles of ALARA. CONTRAST: Patient received 110ml 320omni of IV contrast COMPARISON: No relevant prior studies available. FINDINGS: Lung bases: Unremarkable. No mass. No consolidation. ABDOMEN: Liver: Hepatic steatosis. Gallbladder and bile ducts: Unremarkable. No calcified stones. No ductal dilation. Pancreas: Unremarkable. No mass. No ductal dilation. Spleen: Unremarkable. No splenomegaly. Adrenals: Unremarkable. No mass. Kidneys and ureters: Nonobstructing 3 mm RIGHT lower pole renal stone. RIGHT renal cyst measures 1 cm. Stomach and bowel: Diverticulosis, without acute diverticulitis. No small bowel obstruction. No free intraperitoneal air. PELVIS: Appendix: No findings to suggest acute appendicitis. Bladder: Unremarkable. No mass. Reproductive: Hysterectomy. ABDOMEN and PELVIS: Intraperitoneal space: Unremarkable. No free air. No significant fluid collection. Bones/joints: No acute fracture. No dislocation. Soft tissues: Ventral abdominal wall hernia contains peritoneal fat and measures 2.1 x 6.5 cm. Vasculature: Unremarkable. No abdominal aortic aneurysm. Lymph nodes: Unremarkable. No enlarged lymph nodes. IMPRESSION: 1. Hepatic steatosis. 2. Nonobstructing 3 mm RIGHT lower pole renal stone. 3. Hysterectomy. 4. Diverticulosis, without acute diverticulitis. No small bowel obstruction. No free intraperitoneal air. Electronically signed by: Raudel Arevalo MD 09/17/23 21:[address] 09/17/23 19:13 Exam(s): CT C SPINE EXAM: CT Cervical Spine Without Intravenous Contrast CLINICAL HISTORY: Reason for exam: syncope, pain, SCC tongue. TECHNIQUE: Axial computed tomography images of the cervical spine without intravenous contrast. CTDI is 22.96 mGy and DLP is 405 mGy-cm. Automated exposure control was utilized for the study. A dose lowering technique was utilized adhering to the principles of ALARA. COMPARISON: No relevant prior studies available. FINDINGS: The vertebral body heights are maintained. The craniocervical junction is intact. The atlanto-dens interval is maintained. The dens is intact. There is no spondylolisthesis. Multilevel cervical spondylosis and degenerative disc disease. Straightening of the cervical lordosis. The unenhanced neck soft tissues are grossly unremarkable. The visualized lung apices are grossly clear. IMPRESSION: No acute fracture or subluxation of the cervical spine. Electronically signed by: Raudel Arevalo MD 09/17/23 20:58 PM Chest CTA 09/17/23 19:13 Exam(s): CTA CHEST IV Amt: 110ml 320omni EXAM: CT Angiography Chest With Intravenous Contrast CLINICAL HISTORY: Reason for exam: syncope, SCC tongue, r/o PE. TECHNIQUE: Axial computed tomographic angiography images of the chest with intravenous contrast. CTDI is 24.59 mGy and DLP is 763.18 mGy-cm. Automated exposure control was utilized for the study. A dose lowering technique was utilized adhering to the principles of ALARA. MIP reconstructed images were created and reviewed. COMPARISON: No relevant prior studies available. FINDINGS: Pulmonary arteries: Unremarkable. No pulmonary embolism. Aorta: No acute findings. No thoracic aortic aneurysm. Lungs: Unremarkable. No mass. No consolidation. Pleural space: Unremarkable. No significant effusion. No pneumothorax. Heart: Unremarkable. No cardiomegaly. No significant pericardial effusion. No evidence of RV dysfunction. Bones/joints: Degenerative changes of the spine. No acute fracture. No dislocation. Soft tissues: Unremarkable. Lymph nodes: Unremarkable. No enlarged lymph nodes. IMPRESSION: No acute findings in the visualized arteries of the chest. Electronically signed by: Raudel Arevalo MD 09/17/23 20:[address] 09/17/23 19:13 Exam(s): CT HEAD Without Contrast EXAM: CT Head Without Intravenous Contrast CLINICAL HISTORY: Reason for exam: syncope, SCC tongue. TECHNIQUE: Axial computed tomography images of the head/brain without intravenous contrast. CTDI is 37.32 mGy and DLP is 624.41 mGy-cm. Automated exposure control was utilized for the study. A dose lowering technique was utilized adhering to the principles of ALARA. COMPARISON: No relevant prior studies available. FINDINGS: No acute intracranial hemorrhage. No midline shift or mass effect. The territorial casey-white matter differentiation is maintained throughout. Age-related cerebral volume loss. Periventricular and subcortical white matter hypoattenuation, consistent with chronic microangiopathy. The visualized orbits appear grossly unremarkable. The calvarium is intact. The visualized paranasal sinuses and mastoid air cells are grossly clear. IMPRESSION: No acute intracranial hemorrhage, midline shift, or mass effect. Electronically signed by: Raudel Arevalo MD 09/17/23 20:56 PM Supervising Physician Co-Signing Physician Notes Patient seen and examined, chart reviewed, case discussed with Dr. Moore and I agree with the assessment and plan as above Resident Activity Tracking Resident Involvement: Resident Care Provided Care Provided: Adult [facility]
[2023-09-17] MEDS: SODIUM CHLORIDE 0.9% 1,000 ML IV SCH (22:30)
[2023-09-17] MEDS: POTASSIUM CHLORIDE / WTR 10 MEQ/100 ML PLCT IV SCH (22:36)
[2023-09-17] MEDS ORDERED: OLANZAPINE 2.5 MG TAB PO STA (23:33)
[2023-09-17] MEDS ORDERED: POTASSIUM CHLORIDE / WTR 10 MEQ/100 ML PLCT IV STA (23:40)
[2023-09-18] MEDS ORDERED: ONDANSETRON 4 MG OD TAB PO PRN (01:11)
[2023-09-18] MEDS ORDERED: ACETAMINOPHEN 325 MG TAB PO PRN (01:11)
[2023-09-18] MEDS: POTASSIUM CHLORIDE / WTR 10 MEQ/100 ML PLCT IV SCH (01:29)
[2023-09-18 06:06] LABS: Basophils # (auto) 0.02 K/uL (0.00-0.20); Basophils % (auto) 0.5 %; Eosinophils # (auto) 0.06 K/uL (0.00-0.50); Eosinophils % (auto) 1.6 %; Hematocrit (blood only) 33.7 % (37.0-47.0); Hemoglobin 11.7 g/dl (12.0-16.0); Immature Granulocytes # (auto) 0.01 K/uL (0.01-0.20); Immature Granulocytes % (auto) 0.3 %; Lymphocytes # (auto) 0.42 K/uL (1.20-3.40); Lymphocytes % (auto) 11.1 %; Mean Corpuscular Hemoglobin 30.6 pg (25.0-34.0); Mean Corpuscular Hgb Conc 34.7 g/dL (32.0-36.0); Mean Corpuscular Volume 88.2 fL (80.0-100.0); Mean Platelet Volume 8.7 fL (9.4-12.4); Monocytes # (auto) 0.49 K/uL (0.11-0.59); Monocytes % (auto) 12.9 %; Neutrophils % (auto) 73.6 %; Platelet Count 136 K/uL (130-400); RDW Standard Deviation 40.6 fL (36.4-46.3); Red Blood Count 3.82 M/uL (4.20-5.40)
[2023-09-18] MEDS: SODIUM CHLORIDE 0.9% 1,000 ML IV SCH ×2 (06:12→16:19)
[2023-09-18 06:24] LABS: Calcium 8.6 mg/dl (8.6-10.3); Creatinine Clr Calc Pharmacy 66.2 ml/min; Est GFR (African American) 75.4 ml/min; Magnesium 2.2 mg/dl (1.7-2.4); Potassium 3.5 mmol/L (3.5-5.1)
[2023-09-18] MEDS: HEPARIN SOD 5,000 UNIT/0.5 ML VIAL SQ SCH ×2 (08:37→20:18)
[2023-09-18] MEDS: PROPRANOLOL HCL 60 MG LA CAP PO SCH (08:37)
[2023-09-18] MEDS: PANTOprazole 40 MG TAB PO SCH (08:37)
--- NOTE | 2023-09-18 14:28 | Hospitalist Progress Note ---
Date of Service September 18, 2023 Assessment & Plan (1) Syncope: Plan: 62 yo female with PMHx tremors, GERD, and tongue SCC presents with syncopal event. #Syncope -Presented with syncopal event. She did feel she was about to faint. Suspect due to poor oral intake 2/2 chemoradiation. She was hypotensive on arrival. Low suspicion for cardiac etiology. WBC wnl. Vitals stable, afebrile. Head CT neg. Cervical spine CT neg. Chest CTA w/o PE. she was given IV fluids and currently is not dizzy anymore Check orthostatic vital signs #YING -Cr 1.4 on admission. Resolved with IV fluids #Hypokalemia -K 3.2 on admission. Resolved after replaced #Hypomagnesemia -Mag 1.4 on admission. Resolved after replaced #SCC of Tongue -[facility]. Recent diagnosis in 2022 with subsequent initiation of chemoradiation in July. Most recent treatment was 09/14. Poor oral intake 2/2 to this as she has persistent nausea and vomiting. Scheduled for PEG tube placement 09/20/23. -zofran prn for nausea -olanzapine 4x/wk (treatment day and 3 days afterwards). Dose given tonight, will not be due till next treatment. Patient wishes to continue clear liquid diet As she is still nauseous. #GERD -cont. PPI #Tremors -cont. propranolol DVT ppx: heparin SQ FEN/GI: clears (d/t nausea) Code Status: full Dispo: med tele (2) Primary squamous cell carcinoma of base of tongue: (3) GERD (gastroesophageal reflux disease): (4) Acute kidney injury: (5) Hypomagnesemia: (6) Hypokalemia: (7) Tremor: Admission and Anticipated Discharge Date Admission Date: September 17, 2023 Subjective Patient feels better. She still does not have any appetite. She wants to continue with the clear liquid diet. Review of Systems Review of Systems: All systems reviewed & are unremarkable except as noted in Subjective Physical Exam Physical Exam: General: Awake, conversant Heart: S1, S2/regular rate and rhythm, no murmur rubs or gallops Lungs: Clear to auscultation bilaterally. Normal effort Abdomen: Soft/nontender/nondistended. No hepatosplenomegaly Extremities: No clubbing/cyanosis. No edema Behavior: Appropriate, cooperative Results & Data Results & Data Vital Signs (Past 12 Hours) Vital Signs Temp Pulse Pulse Resp BP Pulse Ox O2 Del Method 09/18/23 11:32 36.5 C 57 L 16 110/75 94 Room Air 09/18/23 08:45 Room Air 09/18/23 08:02 36.9 C 70 16 100/67 94 Room Air 09/18/23 07:13 60 09/18/23 04:42 96/62 L Laboratory Results Abnormal lab results 09/17/23 09/17/23 09/17/23 Range/Units 19:00 19:00 19:00 WBC (4.8-10.8) K/ul RBC (4.20-5.40) M/uL Hgb (12.0-16.0) g/dl Hct (37.0-47.0) % MPV 8.8 L (9.4-12.4) fL Lymph # (Auto) 0.34 L (1.20-3.40) K/uL APTT 20.2 L (21.0-31.0) Seconds Sodium 135 L (136-145) mmol/L Potassium 3.2 L (3.5-5.1) mmol/L Chloride 96 L (98-107) mmol/L Creatinine 1.40 H (0.6-1.2) mg/dl Glucose 135 H (70-99(Fasting)) mg/dl Magnesium 1.4 L (1.7-2.4) mg/dl Total Bilirubin 1.4 H (0.2-1.0) mg/dl 09/18/23 Range/Units 05:30 WBC 3.80 L (4.8-10.8) K/ul RBC 3.82 L (4.20-5.40) M/uL Hgb 11.7 L (12.0-16.0) g/dl Hct 33.7 L (37.0-47.0) % MPV 8.7 L (9.4-12.4) fL Lymph # (Auto) 0.42 L (1.20-3.40) K/uL APTT (21.0-31.0) Seconds Sodium (136-145) mmol/L Potassium (3.5-5.1) mmol/L Chloride (98-107) mmol/L Creatinine (0.6-1.2) mg/dl Glucose (70-99(Fasting)) mg/dl Magnesium (1.7-2.4) mg/dl Total Bilirubin (0.2-1.0) mg/dl Diagnostic Findings Chest X-Ray 09/17/23 18:46 XR chest 1V portable CLINICAL HISTORY: Chest pain, nonspecific TECHNIQUE: Single frontal radiograph of the chest was obtained. Comparison: None available at the time of this dictation. FINDINGS: No lines and tubes are seen. The cardiomediastinal silhouette is normal. The lungs are clear. No evidence of pleural effusion or pneumothorax. IMPRESSION: No acute chest disease. ACT 112: Negative or not required by law. Electronically signed by: Nixon Charles M.D. 09/17/2023 8:12 PM Abdomen/Pelvis CT 09/17/23 19:13 Exam(s): CT ABDOMEN + PELVIS With Contrast IV Amt: 110ml 320omni EXAM: CT Abdomen and Pelvis With Intravenous Contrast CLINICAL HISTORY: Reason for exam: syncope, abd pain, n/v, SCC tongue. TECHNIQUE: Axial computed tomography images of the abdomen and pelvis with intravenous contrast. CTDI is 26.44 mGy and DLP is 1541.41 mGy-cm. Automated exposure control was utilized for the study. A dose lowering technique was utilized adhering to the principles of ALARA. CONTRAST: Patient received 110ml 320omni of IV contrast COMPARISON: No relevant prior studies available. FINDINGS: Lung bases: Unremarkable. No mass. No consolidation. ABDOMEN: Liver: Hepatic steatosis. Gallbladder and bile ducts: Unremarkable. No calcified stones. No ductal dilation. Pancreas: Unremarkable. No mass. No ductal dilation. Spleen: Unremarkable. No splenomegaly. Adrenals: Unremarkable. No mass. Kidneys and ureters: Nonobstructing 3 mm RIGHT lower pole renal stone. RIGHT renal cyst measures 1 cm. Stomach and bowel: Diverticulosis, without acute diverticulitis. No small bowel obstruction. No free intraperitoneal air. PELVIS: Appendix: No findings to suggest acute appendicitis. Bladder: Unremarkable. No mass. Reproductive: Hysterectomy. ABDOMEN and PELVIS: Intraperitoneal space: Unremarkable. No free air. No significant fluid collection. Bones/joints: No acute fracture. No dislocation. Soft tissues: Ventral abdominal wall hernia contains peritoneal fat and measures 2.1 x 6.5 cm. Vasculature: Unremarkable. No abdominal aortic aneurysm. Lymph nodes: Unremarkable. No enlarged lymph nodes. IMPRESSION: 1. Hepatic steatosis. 2. Nonobstructing 3 mm RIGHT lower pole renal stone. 3. Hysterectomy. 4. Diverticulosis, without acute diverticulitis. No small bowel obstruction. No free intraperitoneal air. Electronically signed by: Raudel Arevalo MD 09/17/23 21:[address] 09/17/23 19:13 Exam(s): CT C SPINE EXAM: CT Cervical Spine Without Intravenous Contrast CLINICAL HISTORY: Reason for exam: syncope, pain, SCC tongue. TECHNIQUE: Axial computed tomography images of the cervical spine without intravenous contrast. CTDI is 22.96 mGy and DLP is 405 mGy-cm. Automated exposure control was utilized for the study. A dose lowering technique was utilized adhering to the principles of ALARA. COMPARISON: No relevant prior studies available. FINDINGS: The vertebral body heights are maintained. The craniocervical junction is intact. The atlanto-dens interval is maintained. The dens is intact. There is no spondylolisthesis. Multilevel cervical spondylosis and degenerative disc disease. Straightening of the cervical lordosis. The unenhanced neck soft tissues are grossly unremarkable. The visualized lung apices are grossly clear. IMPRESSION: No acute fracture or subluxation of the cervical spine. Electronically signed by: Raudel Arevalo MD 09/17/23 20:58 PM Chest CTA 09/17/23 19:13 Exam(s): CTA CHEST IV Amt: 110ml 320omni EXAM: CT Angiography Chest With Intravenous Contrast CLINICAL HISTORY: Reason for exam: syncope, SCC tongue, r/o PE. TECHNIQUE: Axial computed tomographic angiography images of the chest with intravenous contrast. CTDI is 24.59 mGy and DLP is 763.18 mGy-cm. Automated exposure control was utilized for the study. A dose lowering technique was utilized adhering to the principles of ALARA. MIP reconstructed images were created and reviewed. COMPARISON: No relevant prior studies available. FINDINGS: Pulmonary arteries: Unremarkable. No pulmonary embolism. Aorta: No acute findings. No thoracic aortic aneurysm. Lungs: Unremarkable. No mass. No consolidation. Pleural space: Unremarkable. No significant effusion. No pneumothorax. Heart: Unremarkable. No cardiomegaly. No significant pericardial effusion. No evidence of RV dysfunction. Bones/joints: Degenerative changes of the spine. No acute fracture. No dislocation. Soft tissues: Unremarkable. Lymph nodes: Unremarkable. No enlarged lymph nodes. IMPRESSION: No acute findings in the visualized arteries of the chest. Electronically signed by: Raudel Arevalo MD 09/17/23 20:[address] 09/17/23 19:13 Exam(s): CT HEAD Without Contrast EXAM: CT Head Without Intravenous Contrast CLINICAL HISTORY: Reason for exam: syncope, SCC tongue. TECHNIQUE: Axial computed tomography images of the head/brain without intravenous contrast. CTDI is 37.32 mGy and DLP is 624.41 mGy-cm. Automated exposure control was utilized for the study. A dose lowering technique was utilized adhering to the principles of ALARA. COMPARISON: No relevant prior studies available. FINDINGS: No acute intracranial hemorrhage. No midline shift or mass effect. The territorial casey-white matter differentiation is maintained throughout. Age-related cerebral volume loss. Periventricular and subcortical white matter hypoattenuation, consistent with chronic microangiopathy. The visualized orbits appear grossly unremarkable. The calvarium is intact. The visualized paranasal sinuses and mastoid air cells are grossly clear. IMPRESSION: No acute intracranial hemorrhage, midline shift, or mass effect. Electronically signed by: Raudel Arevalo MD 09/17/23 20:56 PM PG Care Time/CCT Total # of Minutes Spent Total Time Spent with Patient: Total time spent is greater than 50% in coordination of care (as documented) at patient's floor/unit and/or counseling patient: Coding Level of Care Code 02371 SUB INP/OBS CARE 2/35MIN Diagnoses Syncope R55 Primary squamous cell carcinoma of base of tongue C01 GERD (gastroesophageal reflux disease) K21.9 Acute kidney injury N17.9 Hypomagnesemia E83.42 Hypokalemia E87.6 Tremor R25.1
[2023-09-19] MEDS: SODIUM CHLORIDE 0.9% 1,000 ML IV SCH (07:02)
[2023-09-19] MEDS: PROPRANOLOL HCL 60 MG LA CAP PO SCH (08:37)
[2023-09-19] MEDS: PANTOprazole 40 MG TAB PO SCH (08:41)
[2023-09-19] MEDS: HEPARIN SOD 5,000 UNIT/0.5 ML VIAL SQ SCH (08:41)
[2023-09-19 08:46] LABS: Basophils # (auto) 0.02 K/uL (0.00-0.20); Basophils % (auto) 0.8 %; Eosinophils # (auto) 0.05 K/uL (0.00-0.50); Hematocrit (blood only) 31.5 % (37.0-47.0); Hemoglobin 10.8 g/dl (12.0-16.0); Immature Granulocytes # (auto) 0.01 K/uL (0.01-0.20); Immature Granulocytes % (auto) 0.4 %; Lymphocytes # (auto) 0.39 K/uL (1.20-3.40); Lymphocytes % (auto) 15.4 %; Mean Corpuscular Hemoglobin 30.2 pg (25.0-34.0); Mean Corpuscular Hgb Conc 34.3 g/dL (32.0-36.0); Mean Platelet Volume 8.7 fL (9.4-12.4); Monocytes # (auto) 0.41 K/uL (0.11-0.59); Monocytes % (auto) 16.1 %; Neutrophils # (auto) 1.66 K/uL (1.40-6.50); Neutrophils % (auto) 65.3 %; Platelet Count 120 K/uL (130-400); RDW Coefficient of Variation 12.9 % (11.5-14.5); RDW Standard Deviation 40.4 fL (36.4-46.3); Red Blood Count 3.58 M/uL (4.20-5.40); White Blood Count 2.54 K/ul (4.8-10.8)
[2023-09-19 09:13] LABS: Albumin Globulin Ratio 1.5 (0.9-2); Albumin Level 3.5 gm/dl (3.4-5.0); BUN Creatinine Ratio 13.8 (10-20); Bilirubin,Total 0.6 mg/dl (0.2-1.0); Calcium 8.6 mg/dl (8.6-10.3); Creatinine Clr Calc Pharmacy 69.9 ml/min; Est GFR (African American) 82.8 ml/min; Est GFR (Non-African American) 71.4 ml/min; Globulin 2.3 gm/dl (2.5-4.0); Magnesium 1.4 mg/dl (1.7-2.4); Potassium 3.3 mmol/L (3.5-5.1); Total Protein 5.8 gm/dl (6.0-8.3)
[2023-09-19 09:24] LABS: Folate (Folic Acid),Ser orPlas 14.14 ng/ml (>5.38)
[2023-09-19] MEDS: POTASSIUM CHLORIDE / WTR 10 MEQ/100 ML PLCT IV SCH ×4 (11:33→16:18)
[2023-09-19] MEDS: MAGNESIUM SULFATE / D5W 1 GM/100 ML BAG IV SCH ×3 (11:33→16:17)
--- NOTE | 2023-09-19 14:27 | Discharge Summary ---
Discharge Summary Date of Service September 19, 2023 Notes For Next Care Provider Medication Changes From Visit None Admission HPI Per Admitting Provider 62 yo female with PMHx tremors, GERD, and tongue SCC presents with syncopal event. Earlier this evening patient was in the shower and had a syncopal event. She did feel that she was going to pass out and was able to brace herself. Her is also beside her. She is not sure but believes she was unconscious for couple of minutes. When she came about, she did feel weak but was not confused. She recently started chemoradiation for squamous cell carcinoma of the tongue and since treatments has been experiencing constant nausea and vomiting. She has not been able to intake much food or liquid due to the symptoms. She is scheduled to get a PEG tube placed later this week to resolve this matter. Otherwise denies fever, headache, chest pain, shortness of breath, abdominal pain, dysuria, extremity numbness/tingling. Last BM was a few days ago after chemoradiation. No significant heart history. Principal Dx & Hospital Course #1 = Principal Diagnosis (1) Syncope: 62 yo female with PMHx tremors, GERD, and tongue SCC presents with syncopal event. #Syncope -Presented with syncopal event. She did feel she was about to faint. Suspect due to poor oral intake 2/2 chemoradiation. She was hypotensive on arrival. Low suspicion for cardiac etiology. WBC wnl. Vitals stable, afebrile. Head CT neg. Cervical spine CT neg. Chest CTA w/o PE. she was given IV fluids and currently is not dizzy anymore -no arrhythmias on tele -troponin negative orthostatic vital signs normal -ambulating without lightheadedness #YING -Cr 1.4 on admission. Resolved with IV fluids #Hypokalemia -K 3.2 on admission. remains mildly low-replaced again IV on day of discharge -follow BMP and magnesium at Cancer center routinely -starting tube feeds after PEG tube placement #Hypomagnesemia -Mag 1.4 on admission. replaced and remains low due ot poor po intake -replaced again and follow levels as outpt #SCC of Tongue -[facility]. Recent diagnosis in 2022 with subsequent initiation of chemoradiation in July. Most recent treatment was 09/14. Poor oral intake 2/2 to this as she has persistent nausea and vomiting. Scheduled for PEG tube placement 09/20/23. -zofran prn for nausea -olanzapine 4x/wk (treatment day and 3 days afterwards). Patient wishes to continue clear liquid diet As she is still nauseous. -Nutrition consult appreciated-[employer] bid po and recs for [employer] tube feeds given #GERD -cont. PPI #Tremors -cont. propranolol DVT ppx: heparin SQ Code Status: full Dispo: dc to home (2) Primary squamous cell carcinoma of base of tongue: (3) GERD (gastroesophageal reflux disease): (4) Acute kidney injury: (5) Hypomagnesemia: (6) Hypokalemia: (7) Tremor: Discharge Exam Constitutional WD/WN, vitals as above ENMT left neck and throat with enlargement Respiratory normal respiratory effort, lungs clear to auscultation Cardiovascular RRR, no murmur, no edema Gastrointestinal (Abdomen) normal bowel sounds, soft, nontender, no hepatosplenomegaly Neurologic PERRL, EOMI, accommodation nl, no face palsy, no dysarthria Psychiatric A+Ox3, euthymic affect Updated Medication List Medication Instructions Recorded Confirmed Type acetaminophen 325 mg tablet 325 mg PO QID PRN Pain 07/14/23 09/15/23 History (Tylenol) omeprazole 20 mg capsule,delayed 20 mg PO QAM 07/14/23 09/15/23 History release Magic Mouthwash 300 mL mouthwash 10 ml mucous membrane UD PRN 09/15/23 09/15/23 History dysphagia olanzapine 2.5 mg tablet 2.5 mg PO UD 09/15/23 09/15/23 History ondansetron HCl 8 mg tablet 8 mg PO Q8 PRN n/v 09/15/23 09/15/23 History propranolol 60 mg capsule,24 60 mg PO DAILY 09/18/23 09/18/23 History hr,extended release Hospital Stay Data Consultations 09/17/23 22:04 ED Decision to Admit Stat Diagnostic Imagining Performed 09/17/23 19:13 CT abd pelvis IV con only Stat CT angio chest PE protocol Stat CT cervical spine wo con Stat CT head/brain wo con Stat Pending Results Patient Have Any Pending Studies at Discharge: No Discharge Instructions Given to Patient (Per Discharging Provider) You were admitted after passing out from low blood pressure due to dehydration. You were hydrated with fluids and had your low electrolytes replaced. You should continue to follow up with radiation and have your PEG tube placed tomorrow for tube feeds. The oncologist can check your blood work routinely to ensure your electrolytes are normal. Total Time Total Time Spent Total Time Spent (In Minutes): 35 min Coding Level of Care Code 99706 INP/OBS DISCH >30 MIN Diagnoses Syncope R55 Primary squamous cell carcinoma of base of tongue C01 GERD (gastroesophageal reflux disease) K21.9 Acute kidney injury N17.9 Hypomagnesemia E83.42 Hypokalemia E87.6 Tremor R25.1
[2023-09-19] MEDS ORDERED: OLANZAPINE 2.5 MG TAB PO ONE (18:33)
--- NOTE | 2023-09-20 05:33 | Electrocardiogram Report ---
Test Reason : Blood Pressure : / mmHG Vent. Rate : 068 BPM Atrial Rate : 068 BPM P-R Int : 188 ms QRS Dur : 090 ms QT Int : 412 ms P-R-T Axes : 066 032 052 degrees QTc Int : 438 ms Normal sinus rhythm Normal ECG When compared with ECG of 17-JUL-2023 12:17, Vent. rate has increased BY 23 BPM Nonspecific T wave abnormality no longer evident in Anterior leads Confirmed by Jose Zapata ([id number]) on 09/20/2023 5:33:15 AM Referred By: Alina Ryder Confirmed By:Jose Zapata
--- NOTE | 2023-09-20 13:08 | Billing Data ---
Date of Service September 17, 2023 Coding Level of Care Code 93247 INT INP/OBS CARE
== END 2023-09-19 19:29 | disposition home or self-care (01) | DRG 641 ==
LOC: ED 18:37 → 2N 18:37 → OBSVTOIN 23:32 → SUATTDRO 23:32 → 2N 09-18 01:43

== ENCOUNTER 2023-09-20 21:09 | Inpatient (IN) ==
[2023-09-20 22:28] LABS: Basophils # (auto) 0.01 K/uL (0.00-0.20); Basophils % (auto) 0.3 %; Eosinophils # (auto) 0.04 K/uL (0.00-0.50); Eosinophils % (auto) 1.1 %; Hematocrit (blood only) 34.4 % (37.0-47.0); Hemoglobin 12.2 g/dl (12.0-16.0); Immature Granulocytes # (auto) 0.01 K/uL (0.01-0.20); Immature Granulocytes % (auto) 0.3 %; Lymphocytes # (auto) 0.43 K/uL (1.20-3.40); Lymphocytes % (auto) 11.8 %; Mean Corpuscular Hemoglobin 30.9 pg (25.0-34.0); Mean Corpuscular Hgb Conc 35.5 g/dL (32.0-36.0); Mean Corpuscular Volume 87.1 fL (80.0-100.0); Mean Platelet Volume 8.7 fL (9.4-12.4); Monocytes # (auto) 0.47 K/uL (0.11-0.59); Monocytes % (auto) 12.9 %; Neutrophils # (auto) 2.69 K/uL (1.40-6.50); Neutrophils % (auto) 73.6 %; Platelet Count 139 K/uL (130-400); RDW Coefficient of Variation 12.9 % (11.5-14.5); Red Blood Count 3.95 M/uL (4.20-5.40); White Blood Count 3.65 K/ul (4.8-10.8)
[2023-09-20 22:43] LABS: Alanine Aminotransferase 25 U/L (7-52); Albumin Globulin Ratio 1.5 (0.9-2); Albumin Level 4.1 gm/dl (3.4-5.0); Alkaline Phosphatase 77 U/L (34-104); Anion Gap 9 (3-11); Aspartate Aminotransferase 23 U/L (13-39); BUN Creatinine Ratio 11.7 (10-20); Bilirubin,Total 0.6 mg/dl (0.2-1.0); Blood Urea Nitrogen 13 mg/dl (6-23); Calcium 9.6 mg/dl (8.6-10.3); Carbon Dioxide 25 mmol/L (21-32); Chloride 102 mmol/L (98-107); Est GFR (African American) 61.6 ml/min; Est GFR (Non-African American) 53.2 ml/min; Globulin 2.8 gm/dl (2.5-4.0); Glucose 87 mg/dl (70-99(Fasting)); Lipase 134 U/L (11-82); Potassium 3.3 mmol/L (3.5-5.1); Sodium 136 mmol/L (136-145); Total Protein 6.9 gm/dl (6.0-8.3)
[2023-09-20] MEDS ORDERED: PROMETHAZINE 25 MG/51 ML BAG IV STA (23:21)
[2023-09-20] MEDS ORDERED: SODIUM CHLORIDE 0.9% 1,000 ML IV ONE (23:21)
--- NOTE | 2023-09-20 23:29 | Emergency Department Note ---
History of Present Illness General Chief complaint: Nausea Stated complaint: NEEDS FLUIDS Time Seen by Provider: 09/20/23 22:52 History of Present Illness Maximum Pain Intensity: 8 62-year-old female with past medical history significant for squamous cell carcinoma of the tongue who presents to the emergency department accompanied by daughters for evaluation of nausea/vomiting, poor p.o. intake and generalized weakness. Patient was just admitted to our hospital on 09/17 to 09/19 for similar symptoms. She was scheduled for outpatient PEG tube insertion today. This was attempted by Dr. Norman, gastroenterology and reportedly was unsuccessful. Patient was discharged home in good condition. She has been having ongoing nausea which got a significantly worse after the procedure today. She does note occasional vomiting. She denies any fevers. She is currently on chemo and radiation. No chest pain or shortness of breath, abdominal pain. No further falls. She has been taking her home Zofran without much relief. Your patient follows with Dr. Felix, hematology/oncology. Home Medications Medication Instructions Recorded Confirmed Type acetaminophen 325 mg tablet 325 mg PO QID PRN Pain 07/14/23 09/20/23 History (Tylenol) omeprazole 20 mg capsule,delayed 20 mg PO QAM 07/14/23 09/20/23 History release Magic Mouthwash 300 mL mouthwash 10 ml mucous membrane UD PRN 09/15/23 09/20/23 History dysphagia olanzapine 2.5 mg tablet 2.5 mg PO UD 09/15/23 09/20/23 History ondansetron HCl 8 mg tablet 8 mg PO Q8 PRN n/v 09/15/23 09/20/23 History propranolol 60 mg capsule,24 60 mg PO DAILY 09/18/23 09/20/23 History hr,extended release oxycodone 5 mg/5 mL oral solution 5 mg PO Q6 PRN Pain 09/20/23 09/20/23 History Allergies Allergy/AdvReac Type Severity Reaction Status Date / Time No Known Allergies Allergy Verified 09/20/23 13:12 Past Med/Surg History Medical History (Updated 09/22/23 @ 08:29 by Guillermina Warren PA-C) Anemia blood count dropping Fatty liver GERD (gastroesophageal reflux disease) Kidney stones x2 current/no problems. Nausea Pre-op testing Syncope Throat cancer and tongue cancer dx: Jun 2023. current chemo and radiation. Tremor Trouble swallowing mild improvement Surgical History History of colonoscopy History of esophagogastroduodenoscopy (EGD) History of laryngoscopy direct with biopsy of left tongue base mass-07/21/23-Dr. Cunningham History of repair of hiatal hernia x 2 History of total abdominal hysterectomy and bilateral salpingo-oophorectomy Family History Mother Alzheimer disease Father No problems noted. Sister No problems noted. Brother , Half sibling Heart disease Sister No problems noted. Grandmother (Maternal) Alzheimer disease Stroke Grandfather (Maternal) Bone cancer Stroke Social History Smoking Status: Never smoker Second Hand Exposure: Yes; Do You Dip or Chew Tobacco: No; Tobacco Cessation Education Requested by Patient: No Hx Alcohol Use: Yes Alcohol type: wine Alcohol Intake Frequency: Monthly or Less Hx Substance Use: No Preferred Language: Swedish Communication Ability: Effective Electric Welder Required: No Beliefs That Will Affect Care: None marital status: Current Living Situation: Spouse Current Living Situation Comment: son and ; current occupational status: employed and retired 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 [employer]; How many Children do You have: 4 Other Information That Helps Us Care for You: No Feels Safe at Home: Yes Safety Concerns: Feels Safe At This Time Childhood Exposure to Second-Hand Smoke: Yes (Dad smoked; ) Assistive Devices: Cane and Walker Physical Exam Vital Signs Vital Signs - 24 hr 09/20/23 21:29 Temperature 37.6 C H Temperature Source Oral Pulse Rate 83 Respiratory Rate 18 Blood Pressure 102/70 Blood Pressure Mean 80 Pulse Oximetry 93 Oxygen Delivery Method Room Air Sepsis Recent Fever Within 48 Hours No Sepsis New/Unexplained Change in Mental Status No Sepsis Action Taken by Nursing No Action Required Constitutional: alert and oriented x3. no acute distress. Nontoxic HEENT: normocephalic, atraumatic. normal conjunctiva.PERRLA. EOM's grossly intact. Mucus membranes dry Respiratory: lungs are clear to auscultation without wheezes, rhonchi, or rales bilaterally. equal chest rise. normal respiratory effort, no accessory muscle use. Cardiovascular: normal heart sounds without murmur. regular rate and rhythm. GI: abdomen is soft, nontender.No palpable masses. No rebound tenderness or gua rding. MSK: Moves all 4 extremities spontaneously Peripheral vascular: extremities warm and well perfused Neuro: without focal neuro deficits. GCS 15. Psych:appropriate mood and affect. Course Administered Medications Enoxaparin Sodium (Enoxaparin Inj 40 Mg/0.4 Ml Syr) 40 mg SQ QAM ELA Stop: 10/22/23 12:29 Last Admin: 09/22/23 12:30 Dose: 40 mg Documented By: RYAN Pantoprazole Sodium 40 mg/ (Syringe) 10 mls @ 5 mls/min IV DAILY@1100 [facility] Stop: 10/22/23 10:59 Last Admin: 09/22/23 12:32 Dose: 5 mls/min Documented By: RYAN Fat Emulsion-[place] Oil/Soybean Oil (Clinolipid 20% Iv Fat Emulsion) 250 mls @ 41.67 mls/hr IV .Q6H ELA Stop: 09/22/23 21:59 Last Admin: 09/22/23 16:48 Dose: 41.7 mls/hr Documented By: RYAN Amino Acids 1,768 ml/ (Nutrition (Parenteral)) 1,768 mls @ 73.7 mls/hr IV .Q24H [facility]; Protocol Stop: 10/22/23 15:59 Last Admin: 09/22/23 16:47 Dose: 73.7 mls/hr Documented By: RYAN Discontinued Medications Bisacodyl (Bisacodyl 10 Mg Supp) 10 mg CO NOW STA Stop: 09/22/23 12:04 Last Admin: 09/22/23 12:32 Dose: 10 mg Documented By: RYAN Sodium Chloride (Nss) 1,000 mls @ 999 mls/hr IV .Q1H1M ONE Stop: 09/21/23 00:21 Last Infusion: 09/21/23 00:33 Dose: 0 mls/hr Documented By: Admin: 09/20/23 23:41 Dose: 999 mls/hr Documented By: POLIW Promethazine HCl (Phenergan) 25 mg in 51 mls @ 204 mls/hr IV NOW STA Stop: 09/20/23 23:35 Last Infusion: 09/20/23 23:55 Dose: 0 mls/hr Documented By: Admin: 09/20/23 23:41 Dose: 204 mls/hr Documented By: ASW Potassium Chloride/Sodium Chloride (Normal Saline W/20 Meq Kcl) 20 meq in 1,000 mls @ 100 mls/hr IV .Q10H ELA; Protocol Stop: 09/22/23 15:59 Last Infusion: 09/22/23 16:44 Dose: 0 mls/hr Documented By: Admin: 09/22/23 15:08 Dose: 100 mls/hr Documented By: Infusion: 09/22/23 10:04 Dose: 100 mls/hr Documented By: Admin: 09/22/23 00:04 Dose: 100 mls/hr Documented By: Infusion: 09/22/23 00:03 Dose: 0 mls/hr Documented By: Infusion: 09/21/23 20:07 Dose: 100 mls/hr Documented By: Admin: 09/21/23 09:42 Dose: 100 mls/hr Documented By: Admin: 09/21/23 00:59 Dose: Not Given Documented By: YONATAN Magnesium Sulfate/Dextrose (Magnesium Sulfate / D5w) 1 gm in 100 mls @ 50 mls/hr IV Q2H ELA Stop: 09/21/23 06:44 Last Infusion: 09/21/23 08:16 Dose: 0 mls/hr Documented By: Admin: 09/21/23 06:16 Dose: 50 mls/hr Documented By: Infusion: 09/21/23 06:15 Dose: 0 mls/hr Documented By: Admin: 09/21/23 04:37 Dose: 50 mls/hr Documented By: Admin: 09/21/23 01:00 Dose: Not Given Documented By: ASW Magnesium Sulfate/Dextrose (Magnesium Sulfate / D5w) 1 gm in 100 mls @ 50 mls/hr IV Q2H ELA Stop: 09/22/23 00:29 Last Infusion: 09/22/23 02:09 Dose: 0 mls/hr Documented By: Admin: 09/22/23 00:04 Dose: 50 mls/hr Documented By: Infusion: 09/22/23 00:03 Dose: 0 mls/hr Documented By: Admin: 09/21/23 21:57 Dose: 50 mls/hr Documented By: SIRAI Magnesium Sulfate/Dextrose (Magnesium Sulfate / D5w) 1 gm in 100 mls @ 50 mls/hr IV Q2H ELA Stop: 09/22/23 14:14 Last Infusion: 09/22/23 17:06 Dose: 0 mls/hr Documented By: Admin: 09/22/23 15:04 Dose: 50 mls/hr Documented By: Infusion: 09/22/23 15:04 Dose: 50 mls/hr Documented By: Admin: 09/22/23 13:24 Dose: 50 mls/hr Documented By: Infusion: 09/22/23 11:29 Dose: 50 mls/hr Documented By: Admin: 09/22/23 09:29 Dose: 50 mls/hr Documented By: RYAN Magnesium Sulfate/Dextrose (Magnesium Sulfate 1gm / D5w Bag) Confirm Administered Dose 1 gm IV .STK-MED ONE Stop: 09/21/23 00:46 Last Admin: 09/21/23 01:34 Dose: 1 gm Documented By: YONATAN Miscellaneous (Stop Order: Iv Fluids) 1 each N/A ONE ONE Stop: 09/22/23 16:00 Last Admin: 09/22/23 16:44 Dose: 1 each Documented By: RYAN Miscellaneous Information (Tpn/Ppn Consult Pharmacy) 1 each N/A NOW STA Stop: 09/22/23 11:13 Last Admin: 09/22/23 15:08 Dose: 1 each Documented By: RYAN Potassium Chloride/Sodium Chloride (Nss+Kcl 20 Meq 1000ml) Confirm Administered Dose 20 meq IV .STK-MED ONE Stop: 09/21/23 00:22 Last Admin: 09/21/23 01:34 Dose: 20 meq Documented By: YONATAN Medical Decision Making Differential Diagnosis Malignancy, dehydration, electrolyte abnormalities, failure to thrive, infection, sepsis, obstruction, ACS, CVA as well as other pathologies Laboratory Data Attestation: I reviewed the patient's lab results. 09/20/23 22:02 09/20/23 22:02 Lab Results 09/20/23 09/20/23 09/20/23 Range/Units 22:02 22:02 23:38 WBC 3.65 L (4.8-10.8) K/ul RBC 3.95 L (4.20-5.40) M/uL Hgb 12.2 (12.0-16.0) g/dl Hct 34.4 L (37.0-47.0) % MCV 87.1 (80.0-100.0) fL MCH 30.9 (25.0-34.0) pg MCHC 35.5 (32.0-36.0) g/dL RDW Std Deviation 40.0 (36.4-46.3) fL RDW Coeff of Maria Eugenia 12.9 (11.5-14.5) % Plt Count 139 (130-400) K/uL MPV 8.7 L (9.4-12.4) fL Immature Gran % (Auto) 0.3 % Neut % (Auto) 73.6 % Lymph % (Auto) 11.8 % [place] % (Auto) 12.9 % Eos % (Auto) 1.1 % Baso % (Auto) 0.3 % Neut # (Auto) 2.69 (1.40-6.50) K/uL Lymph # (Auto) 0.43 L (1.20-3.40) K/uL [place] # (Auto) 0.47 (0.11-0.59) K/uL Eos # (Auto) 0.04 (0.00-0.50) K/uL Baso # (Auto) 0.01 (0.00-0.20) K/uL Immature Gran # (Auto) 0.01 (0.01-0.20) K/uL Sodium 136 (136-145) mmol/L Potassium 3.3 L (3.5-5.1) mmol/L Chloride 102 (98-107) mmol/L Carbon Dioxide 25 (21-32) mmol/L Anion Gap 9 (3-11) BUN 13 (6-23) mg/dl Creatinine 1.11 (0.6-1.2) mg/dl Est Cr Clr Drug Dosing Not Reportable Est GFR ( Amer) 61.6 ml/min Est GFR (Non-Af Amer) 53.2 ml/min BUN/Creatinine Ratio 11.7 (10-20) Glucose 87 (70-99(Fasting)) mg/dl Lactate 0.9 (0.4-2.0) mmol/L Calcium 9.6 (8.6-10.3) mg/dl Magnesium 1.4 L (1.7-2.4) mg/dl Total Bilirubin 0.6 (0.2-1.0) mg/dl AST 23 (13-39) U/L ALT 25 (7-52) U/L Alkaline Phosphatase 77 (34-104) U/L Troponin I High Sens 8.4 (0-14) pg/ml Total Protein 6.9 (6.0-8.3) gm/dl Albumin 4.1 (3.4-5.0) gm/dl Globulin 2.8 (2.5-4.0) gm/dl Albumin/Globulin Ratio 1.5 (0.9-2) Lipase 134 H (11-82) U/L Imaging Data My Impression: CXR per my interpretation without focal consolidation, pleural effusion, pneumothorax Radiologist's Impression: Chest X-Ray 09/20/23 23:23 XR chest 1V portable CLINICAL HISTORY: Nausea. COMPARISON STUDY: Chest CT and chest radiograph September 17, 2023. FINDINGS: Lung volumes are normal. Lungs are clear. There is no pneumothorax or pleural effusion. Cardiac size is normal. Mediastinal contours are normal. There is no evidence for pulmonary edema. IMPRESSION: No acute cardiopulmonary findings. ACT 112: Negative or not required by law. Electronically signed by: Sage Garcia M.D. 09/21/2023 7:01 AM KUB X-Ray 09/21/23 00:03 KUB HISTORY: Acute nausea with vomiting N/V COMPARISON: CT 09/17/2023 FINDINGS: Nonobstructive bowel gas pattern. No renal calculi. No ureteral calculi. No pneumoperitoneum or pneumatosis. No fracture. IMPRESSION: Nonobstructive bowel gas pattern. ACT 112: Negative or not required by law. The above report was generated using voice recognition software. It may contain grammatical, syntax or spelling errors. Electronically signed by: Lamont Leone M.D. 09/21/2023 7:17 AM MDM Narrative 62-year-old female with past medical history significant for squamous cell carcinoma of the tongue presents to the emergency department for intractable nausea and poor p.o. intake. Review of pertinent visits including recent hospitalization from 09/17-09/19. Vital signs in ED demonstrate slightly febrile at 37.6 otherwise within normal limits. Patient was scheduled to have PEG insertion placed today but had unsuccessful attempt with gastroenterology. She was discharged home but while there no longer feels she can tolerate her nausea and is overall feeling generalized weak. She denies any fevers, vomiting. No chest pain or shortness of breath. No abdominal pain. She was told that she was going to be referred to general surgery for hopeful PEG place ment but is unsure of the date. IV access was established and basic labs and imaging were obtained. CBC without leukocytosis or acute anemia. No neutropenia. CMP without significant electrolyte abnormalities. Potassium 3.3 and is stable. Renal function within normal limits. LFTs unremarkable. Lipase elevated at 134. Urinalysis without evidence of infection or blood. CXR and KUB unremarkable. Exam is nonfocal. She is well-appearing in no acute distress. Patient was medicated with IV fluids and Phenergan for nausea as she states this helped with her in the past. Given presentation, case was discussed with hospitalist, Dr. Keith for admission to the hospital for continued antiemetics as well as arrangements with GI/general surgery as needed for PEG insertion. Patient was agreeable to this plan. She was admitted to Dr. Keith service in stable condition. Impression & Plan Primary squamous cell carcinoma of base of tongue, Dehydration, Nausea and vomiting Discharge Plan Visit Data Chief Complaint: Nausea Stated Complaint: NEEDS FLUIDS ED Provider: Calos Resendiz ED Midlevel Provider: Guillermina Warren Discharge Problem: Primary squamous cell carcinoma of base of tongue, Dehydration, Nausea and vomiting Patient Disposition: Admitted As Inpatient Discharge Instructions Interventions: ED Discharge Assessment Last Done: 09/21/23 04:35
[2023-09-21 00:10] LABS: Troponin I High Sensitivity 8.4 pg/ml (0-14)
[2023-09-21] MEDS ORDERED: NSS+KCL 20 MEQ 1000ML IV ONE (00:21)
--- NOTE | 2023-09-21 00:34 | Surgery Consultation ---
Date of Consultation September 21, 2023 Assessment & Plan (1) Primary squamous cell carcinoma of base of tongue: The patient is being admitted on the hospitalist service and I did discuss with this service. They note that the patient is being admitted for hydration measures as she has had poor oral intake. Concerning PEG tube placement, the patient will be evaluated by attending general surgeon and a determination will be made if they can successfully place a PEG tube either via endoscopically or if an open procedure will be required. Further recommendation will be made based on attending physician's evaluation of this patient. Would recommend keeping the patient n.p.o. for the present time. Supervising Physician Co-Signing Physician Notes Patient seen and examined, labs imaging reviewed, agree with above. 62-year-old female with squamous cell carcinoma of the tongue, admitted for failure to thrive. She had an attempted PEG tube yesterday but Dr. Norman and GI. It appears that he was unable to safely view the needle and was unable to complete the procedure. She has had a prior laparoscopic Cheyenne fundoplication and a prior open revision Cheyenne fundoplication. On exam she is obese, abdomen has a large midline scar with no obvious hernia. CT from last admission reviewed with no significant abnormality. At this point is difficult to tell whether a gastrostomy tube would be feasible, and she may benefit from jejunostomy tube. Given her prior abdominal surgery, she may benefit from evaluation at a tertiary center where less invasive measures may be beneficial to her. This can be performed as an outpatient. History of Present Illness Reason for Consultation: PEG tube placement History of Present Illness This is a 62-year-old female with a history of tongue cancer. Patient says that she is currently undergoing chemotherapy as well as radiation. Her most recent chemotherapy treatment was approximately 1 week ago and her next 1 is due tomorrow. She is also currently undergoing radiation therapy and she reports that she is approximate long term through her radiation treatments. For approximate the last 2 and half weeks the patient has noted difficulty swallowing and has had associated nausea and vomiting with very poor oral intake. Because of this it was recommended the patient have a PEG tube placed. Earlier today Dr. Jc Norman of [facility] physician group gastroenterology attempted to place a PEG tube which was unsuccessful. His report is reviewed and on the EGD he performed the patient was noted to have a normal esophagus. There was evidence of a previous Cheyenne fundoplication. As the patient has had poor oral intake as described above she feels generally weak and fatigued and admission to the hospital is recommended for hydration. While she is in the hospital surgery has been consulted for consideration and assistance with placing a PEG tube. Concerning previous abdominal surgeries the patient has had a Cheyenne fundoplication on 2 occasions and they were performed at [facility]. Since arrival to the emergency department the patient has had labs and imaging which I independent reviewed. Her white blood cell count is 3.6. Hemoglobin and platelet count are normal and her hematocrit is slightly low at 34.4. Chemistry profile shows sodium is 136 with a potassium of 3.3. Her BUN and creatinine were both within normal range. Lipase had a slight elevation at 134. An abdominal x-ray and a chest x-ray were performed. I did not appreciate any free air under the patient's diaphragm and it did not appear as though she had an obstructive bowel gas pattern on this study. At the time of my interview she was resting comfortably in bed and she is no distress. Allergies Allergy/AdvReac Type Severity Reaction Status Date / Time No Known Allergies Allergy Verified 09/20/23 13:12 Home Medications Medication Instructions Recorded Confirmed Type acetaminophen 325 mg tablet 325 mg PO QID PRN Pain 07/14/23 09/20/23 History (Tylenol) omeprazole 20 mg capsule,delayed 20 mg PO QAM 07/14/23 09/20/23 History release Magic Mouthwash 300 mL mouthwash 10 ml mucous membrane UD PRN 09/15/23 09/20/23 History dysphagia olanzapine 2.5 mg tablet 2.5 mg PO UD 09/15/23 09/20/23 History ondansetron HCl 8 mg tablet 8 mg PO Q8 PRN n/v 09/15/23 09/20/23 History propranolol 60 mg capsule,24 60 mg PO DAILY 09/18/23 09/20/23 History hr,extended release oxycodone 5 mg/5 mL oral solution 5 mg PO Q6 PRN Pain 09/20/23 09/20/23 History Patient History Medical History (Updated 09/21/23 @ 00:41 by Hans Keith MD) Anemia blood count dropping Fatty liver GERD (gastroesophageal reflux disease) Kidney stones x2 current/no problems. Nausea Pre-op testing Syncope Throat cancer and tongue cancer dx: Jun 2023. current chemo and radiation. Tremor Trouble swallowing mild improvement Surgical History History of colonoscopy History of esophagogastroduodenoscopy (EGD) History of laryngoscopy direct with biopsy of left tongue base mass-07/21/23-Dr. Cunningham History of repair of hiatal hernia x 2 History of total abdominal hysterectomy and bilateral salpingo-oophorectomy Family History Mother Alzheimer disease Father No problems noted. Sister No problems noted. Brother , Half sibling Heart disease Sister No problems noted. 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 [employer]; How many Children do You have: 4 Other Information That Helps Us Care for You: No Feels Safe at Home: Yes Safety Concerns: Feels Safe At This Time Childhood Exposure to Second-Hand Smoke: Yes (Dad smoked; ) Assistive Devices: Cane and Walker Review of Systems Constitutional: no fever and no chills Eyes: + corrective lenses Ear, Nose, Mouth, Throat: no hearing loss Respiratory: no cough Cardiovascular: no chest pain Gastrointestinal: + nausea, + vomiting and + dysphagia; no abdominal pain Genitourinary: no dysuria Musculoskeletal: no back pain Integumentary: no rash Neurologic: no localized weakness Physical Exam Constitutional: WD/WN, vitals as above Eyes: Wears glasses ENMT: Ears: no hearing impairment and no external ear abnormality Mouth: no oropharynx abnormality Neck: trachea midline Respiratory: normal respiratory effort; no respiratory distress and no labored breathing Cardiovascular: Rate/Rhythm: regular rate and regular rhythm Gastrointestinal (Abdomen): Abdomen is soft and nondistended. There is no rebound tenderness or guarding. There is no pain with palpation. Patient did have a well-healed midline incision. (She reports that this is from her previous Cheyenne fundoplication). The patient also had approximately 2 cm transverse incision lateral to this midline incision (the patient notes that this is from her attempted PEG tube placement today) Musculoskeletal: No calf tenderness Skin: no rashes Neurologic: moves all extremities Psychiatric: A+Ox3, euthymic affect Results & Data Vital Signs (Past 12 Hours) Vital Signs Temp Pulse Resp BP Pulse Ox O2 Del Method 09/20/23 21:29 37.6 C H 83 18 102/70 93 Room Air PG Care Time/CCT Total # of Minutes Spent Total Time Spent with Patient: Total time spent is greater than 50% in coordination of care (as documented) at patient's floor/unit and/or counseling patient: Coding Level of Care Code 43921 IN/OBS CONSULT LVL 4,60M Diagnoses Primary squamous cell carcinoma of base of tongue C01
[2023-09-21 00:38] LABS: Magnesium 1.4 mg/dl (1.7-2.4)
[2023-09-21] MEDS ORDERED: MAGNESIUM SULFATE 1GM / D5W BAG IV ONE (00:45)
--- NOTE | 2023-09-21 00:45 | History & Physical Report ---
Date of Service September 21, 2023 Assessment & Plan (1) Tremor: (2) GERD (gastroesophageal reflux disease): (3) Sialoadenitis: (4) Mass of throat: (5) Primary squamous cell carcinoma of base of tongue: (6) Hypokalemia: (7) Hypomagnesemia: (8) Dehydration: (9) Nausea and vomiting: (10) Trouble swallowing: Plan Intractable nausea and vomiting/dysphagia/primary squamous cell carcinoma of the tongue- NPO Zofran 4 mg IV every 6 hours as needed Pantoprazole 40 mg IV daily Failed attempt at PEG tube during EGD earlier on 09/20 Consult green feed attendant regarding recommendations for tube feeding Consult general surgery Hypokalemia/hypomagnesemia/dehydration- Magnesium level 1.4, give 3 g magnesium sulfate IV Potassium 3.3- Place on NSS + KCl 20 mEq at 100 mils per hour Repeat laboratories in a.m. Squamous cell carcinoma of the tongue- Consult her oncologist Dr. Felix History of Present Illness Chief Complaint: The patient presents to the emergency department with intractable nausea and vomiting associated with severe dysphagia associated with head and neck CA Primary Care Provider: Alina Ryder The patient is a 62-year-old female with a past medical history including primary squamous cell carcinoma of the base of the tongue, sial adenitis, GERD, tremor, mass of throat and severe dysphagia. She had a failed attempt of placement of PEG tube earlier in the day by gastroenterology via EGD. Patient was to be scheduled to see general surgery in the outpatient setting, however, due to severe nausea vomiting, and signs of dehydration, she was brought to the emergency department for assessment Allergies Allergy/AdvReac Type Severity Reaction Status Date / Time No Known Allergies Allergy Verified 09/20/23 13:12 Home Medications Medication Instructions Recorded Confirmed Type acetaminophen 325 mg tablet 325 mg PO QID PRN Pain 07/14/23 09/20/23 History (Tylenol) omeprazole 20 mg capsule,delayed 20 mg PO QAM 07/14/23 09/20/23 History release Magic Mouthwash 300 mL mouthwash 10 ml mucous membrane UD PRN 09/15/23 09/20/23 History dysphagia olanzapine 2.5 mg tablet 2.5 mg PO UD 09/15/23 09/20/23 History ondansetron HCl 8 mg tablet 8 mg PO Q8 PRN n/v 09/15/23 09/20/23 History propranolol 60 mg capsule,24 60 mg PO DAILY 09/18/23 09/20/23 History hr,extended release oxycodone 5 mg/5 mL oral solution 5 mg PO Q6 PRN Pain 09/20/23 09/20/23 History Past Med/Surg History Medical History (Updated 09/21/23 @ 00:41 by Hans Keith MD) Anemia blood count dropping Fatty liver GERD (gastroesophageal reflux disease) Kidney stones x2 current/no problems. Nausea Pre-op testing Syncope Throat cancer and tongue cancer dx: Jun 2023. current chemo and radiation. Tremor Trouble swallowing mild improvement Surgical History History of colonoscopy History of esophagogastroduodenoscopy (EGD) History of laryngoscopy direct with biopsy of left tongue base mass-07/21/23-Dr. Cunningham History of repair of hiatal hernia x 2 History of total abdominal hysterectomy and bilateral salpingo-oophorectomy Family History Mother Alzheimer disease Father No problems noted. Sister No problems noted. Brother , Half sibling Heart disease Sister No problems noted. 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 [employer]; How many Children do You have: 4 Feels Safe at Home: Yes Childhood Exposure to Second-Hand Smoke: Yes (Dad smoked; ) Assistive Devices: Cane and Walker Review of Systems Review of Systems: The patient denies chest pain, palpitations, shortness of breath, dyspnea on exertion, cough, lower extremity swelling, fevers, chills, sweats, diarrhea , constipation, abdominal pain, pelvic pain, blood in urine or stool, dysuria, urinary frequency or urgency, headache, memory loss, loss of consciousness, rash, abnormal bruising or bleeding, imbalance, focal weakness, numbness or tingling in arms or legs, generalized arthralgias or myalgias, back or neck pain, or night sweats. The review of systems is otherwise negative other than for that already noted above, and at least 10 systems have been reviewed. Physical Exam Physical Exam: The patient is awake, alert and oriented 3, normocephalic and atraumatic, lying in bed and in no acute distress. HEENT--PERRL, EOMI, mucous membranes and oropharynx moderately dry. Neck--supple. No JVD. No bruits. Thyroid normal, trachea midline, no adenopathy. Heart--normal S1 and S2. No murmurs, rubs or gallops. Lungs--clear bilaterally, no respiratory distress, no accessory muscle use. Abdomen--normal bowel sounds and soft. Nontender. Nondistended, no hernias or masses, no organomegaly. Extremities--no cyanosis or clubbing. No edema. Dermatologic--normal skin turgor, normal color, no abnormal lymph nodes, no rash. Neurologic--cranial nerves II through XII grossly intact. Rheumatologic--normal range of motion. Psychiatric--normal affect. Results & Data Results & Data Vital Signs (Past 12 Hours) Vital Signs Temp Pulse Resp BP Pulse Ox O2 Del Method 09/20/23 21:29 37.6 C H 83 18 102/70 93 Room Air Laboratory Results Laboratory Results WBC 3.65 K/ul (4.8-10.8) L 09/20/23 22:02 RBC 3.95 M/uL (4.20-5.40) L 09/20/23 22:02 Hgb 12.2 g/dl (12.0-16.0) 09/20/23 22: Hct 34.4 % (37.0-47.0) L 09/20/23 22: MCV 87.1 fL (80.0-100.0) 09/20/23 22: MCH 30.9 pg (25.0-34.0) 09/20/23 22: MCHC 35.5 g/dL (32.0-36.0) 09/20/23 22: RDW Std Deviation 40.0 fL (36.4-46.3) 09/20/23 22: RDW Coeff of Maria Eugenia 12.9 % (11.5-14.5) 09/20/23: Plt Count 139 K/uL (130-400) 09/20/23 22: MPV 8.7 fL (9.4-12.4) L 09/20/23 22: Immature Gran % (Auto) 0.3 % 09/20/23: Neut % (Auto) 73.6 % 09/20/23: Lymph % (Auto) 11.8 % 09/20/23: [place] % (Auto) 12.9 % 09/20/23: Eos % (Auto) 1.1 % 09/20/23: Baso % (Auto) 0.3 % 09/20/23: Neut # (Auto) 2.69 K/uL (1.40-6.50) 09/20/23 22: Lymph # (Auto) 0.43 K/uL (1.20-3.40) L 09/20/23 22:02 [place] # (Auto) 0.47 K/uL (0.11-0.59) 09/20/23 22:02 Eos # (Auto) 0.04 K/uL (0.00-0.50) 09/20/23 22:02 Baso # (Auto) 0.01 K/uL (0.00-0.20) 09/20/23 22: Immature Gran # (Auto) 0.01 K/uL (0.01-0.20) 09/20/23 22:02 Sodium 136 mmol/L (136-145) 09/20/23 22:02 Potassium 3.3 mmol/L (3.5-5.1) L 09/20/23 22: Chloride 102 mmol/L (98-107) 09/20/23 22:02 Carbon Dioxide 25 mmol/L (21-32) 09/20/23 22:02 Anion Gap 9 (3-11) 09/20/23 22:02 BUN 13 mg/dl (6-23) 09/20/23 22:02 Creatinine 1.11 mg/dl (0.6-1.2) 09/20/23 22:02 Est Cr Clr Drug Dosing Not Reportable 09/20/23 22:02 Est GFR ( Amer) 61.6 ml/min 09/20/23 22:02 Est GFR (Non-Af Amer) 53.2 ml/min 09/20/23 22:02 BUN/Creatinine Ratio 11.7 (10-20) 09/20/23 22:02 Glucose 87 mg/dl (70-99(Fasting)) 09/20/23 22:02 Lactate 0.9 mmol/L (0.4-2.0) 09/20/23 23:38 Calcium 9.6 mg/dl (8.6-10.3) 09/20/23 22: Magnesium 1.4 mg/dl (1.7-2.4) L 09/20/23 22:02 Total Bilirubin 0.6 mg/dl (0.2-1.0) 09/20/23 22:02 AST 23 U/L (13-39) 09/20/23 22:02 ALT 25 U/L (7-52) 09/20/23 22:02 Alkaline Phosphatase 77 U/L (34-104) 09/20/23 22:02 Troponin I High Sens 8.4 pg/ml (0-14) 09/20/23 22:02 Total Protein 6.9 gm/dl (6.0-8.3) 09/20/23 22:02 Albumin 4.1 gm/dl (3.4-5.0) 09/20/23 22:02 Globulin 2.8 gm/dl (2.5-4.0) 09/20/23 22:02 Albumin/Globulin Ratio 1.5 (0.9-2) 09/20/23 22: Lipase 134 U/L (11-82) H 09/20/23 22:02 Code Status & VTE Plan Code Status Full code VTE Prophylaxis Plan VTE Prophylaxis will be ordered: Yes PG Care Time/CCT Total # of Minutes Spent Total Time Spent with Patient: Total time spent is greater than 50% in coordination of care (as documented) at patient's floor/unit and/or counseling patient: Coding Level of Care Code 21855 INT INP/OBS CARE 3/75MIN Diagnoses Tremor R25.1 GERD (gastroesophageal reflux disease) K21.9 Sialoadenitis K11.20 Mass of throat J39.2 Primary squamous cell carcinoma of base of tongue C01 Hypokalemia E87.6 Hypomagnesemia E83.42 Dehydration E86.0 Nausea and vomiting R11.2 Trouble swallowing R13.10
[2023-09-21] MEDS: NSS + 20MEQ KCL 20 MEQ/1,000 ML BAG IV SCH ×2 (00:59→09:42)
[2023-09-21] MEDS: MAGNESIUM SULFATE / D5W 1 GM/100 ML BAG IV SCH ×4 (01:00→21:57)
[2023-09-21] MEDS ORDERED: ONDANSETRON INJ 2 MG/ML 2 ML VIAL IV PRN (04:35)
[2023-09-21 04:59] LABS: Appearance Urine Clear (Clear); Bacteria Urine Automated Negative (Negative); Bilirubin Urine Negative (Negative); Blood Urine Negative (Negative); Color Urine Yellow; Epithelial Cell Urine Auto >30 /lpf (0-5); Glucose Urine UA Negative (Negative); Ketones Urine 2+ (Negative); Leukocyte Esterase Urine Trace (Negative); Nitrite Urine Negative (Negative); Protein Urine Negative (Negative); RBC Urine Automated 0-4 /hpf (0-4); Specific Gravity Urine 1.012 (1.000-1.030); Urobilinogen Urine Negative (Negative); pH Urine 5.5 (4.5-7.5)
[2023-09-21 05:19] LABS: Basophils # (auto) 0.01 K/uL (0.00-0.20); Basophils % (auto) 0.4 %; Eosinophils # (auto) 0.04 K/uL (0.00-0.50); Eosinophils % (auto) 1.4 %; Hematocrit (blood only) 30.2 % (37.0-47.0); Hemoglobin 10.6 g/dl (12.0-16.0); Immature Granulocytes # (auto) 0.02 K/uL (0.01-0.20); Immature Granulocytes % (auto) 0.7 %; Lymphocytes # (auto) 0.49 K/uL (1.20-3.40); Lymphocytes % (auto) 17.8 %; Mean Corpuscular Hemoglobin 31.1 pg (25.0-34.0); Mean Corpuscular Hgb Conc 35.1 g/dL (32.0-36.0); Mean Corpuscular Volume 88.6 fL (80.0-100.0); Mean Platelet Volume 8.7 fL (9.4-12.4); Monocytes # (auto) 0.43 K/uL (0.11-0.59); Monocytes % (auto) 15.6 %; Neutrophils # (auto) 1.77 K/uL (1.40-6.50); Neutrophils % (auto) 64.1 %; Platelet Count 108 K/uL (130-400); RDW Standard Deviation 41.1 fL (36.4-46.3); Red Blood Count 3.41 M/uL (4.20-5.40); White Blood Count 2.76 K/ul (4.8-10.8)
[2023-09-21 05:32] LABS: Albumin Level 3.4 gm/dl (3.4-5.0); BUN Creatinine Ratio 12.5 (10-20); Calcium 8.6 mg/dl (8.6-10.3); Est GFR (African American) 73.5 ml/min; Est GFR (Non-African American) 63.4 ml/min; Phosphorus 3.3 mg/dl (2.5-4.9); Potassium 3.3 mmol/L (3.5-5.1)
--- NOTE | 2023-09-21 07:02 | XRay Report ---
XR chest 1V portable CLINICAL HISTORY: Nausea. COMPARISON STUDY: Chest CT and chest radiograph September 17, 2023. FINDINGS: Lung volumes are normal. Lungs are clear. There is no pneumothorax or pleural effusion. Car diac size is normal. Mediastinal contours are normal. There is no evidence for pulmonary edema. IMPRESSION: No acute cardiopulmonary findings. ACT 112: Negative or not required by law. Electronically signed by: Sage Garcia M.D. 09/21/2023 7:01 AM
--- NOTE | 2023-09-21 07:18 | XRay Report ---
KUB HISTORY: Acute nausea with vomiting N/V COMPARISON: CT 09/17/2023 FINDINGS: Nonobstructive bowel gas pattern. No renal calculi. No ureteral calculi. No pneumoperitone um or pneumatosis. No fracture. IMPRESSION: Nonobstructive bowel gas pattern. ACT 112: Negative or not required by law. The above report was generated using voice recognition software. It may contain grammatical, syntax o r spelling errors. Electronically signed by: Lamont Leone M.D. 09/21/2023 7:17 AM
--- NOTE | 2023-09-21 08:04 | Oncology Consultation ---
Date of Consultation September 21, 2023 Assessment & Plan (1) Nausea and vomiting: (2) Primary squamous cell carcinoma of base of tongue: (3) Trouble swallowing: Plan -Hopefully, have PEG tube placed by general surgery. In the meantime, would recommend optimizing antiemetics with IV Zofran 8 mg every 6 to 8 hours, Compazine 10 mg IV every 6 to 8 hours. If nausea however persists, would recommend trial of dexamethasone or benzodiazepine. -Nutritional consult, orders for feeds have been placed outpatient. -If PEG tube placement is possible at [facility], would also recommend Mediport placement due to poor IV access Thanks for this consult. Oncology will continue following.Please feel free to call if you have any questions . History of Present Illness Reason for Consultation: Squamous cell carcinoma of the base of the tongue Attending Physician: Wild Nelson MD History of Present Illness 62-year-old female recently diagnosed with squamous cell carcinoma of the base of the tongue for which she started chemoRT with weekly cisplatin on 08/28/2023. Since then, she has had difficulty swallowing, persistent nausea and vomiting as well as dehydration for which she has required IV fluid administration at [facility] as well as recent hospitalization from 09/17/2023 to 09/19/2023 for syncopal episo de due to poor hydration. Due to poor oral hydration thought to be due to esophagitis from chemoradiation treatment, recommended PEG tube placement with GI. Procedure was attempted yesterday but was unsuccessful. Presented to the ER yesterday night with intractable nausea and vomiting as well as dysphagia and dehydration. She is awaiting evaluation by general surgery for possible PEG tube placement. Complains of persistent nausea and vomiting. Also complains of dysphagia. Has lost more than 50 pounds since cancer diagnosis but about 11 pounds since she started treatment Allergies Allergy/AdvReac Type Severity Reaction Status Date / Time No Known Allergies Allergy Verified 09/20/23 13:12 Home Medications Medication Instructions Recorded Confirmed Type acetaminophen 325 mg tablet 325 mg PO QID PRN Pain 07/14/23 09/20/23 History (Tylenol) omeprazole 20 mg capsule,delayed 20 mg PO QAM 07/14/23 09/20/23 History release Magic Mouthwash 300 mL mouthwash 10 ml mucous membrane UD PRN 09/15/23 09/20/23 History dysphagia olanzapine 2.5 mg tablet 2.5 mg PO UD 09/15/23 09/20/23 History ondansetron HCl 8 mg tablet 8 mg PO Q8 PRN n/v 09/15/23 09/20/23 History propranolol 60 mg capsule,24 60 mg PO DAILY 09/18/23 09/20/23 History hr,extended release oxycodone 5 mg/5 mL oral solution 5 mg PO Q6 PRN Pain 09/20/23 09/20/23 History Patient History Medical History (Updated 09/21/23 @ 00:41 by Hans Keith MD) Anemia blood count dropping Fatty liver GERD (gastroesophageal reflux disease) Kidney stones x2 current/no problems. Nausea Pre-op testing Syncope Throat cancer and tongue cancer dx: Jun 2023. current chemo and radiation. Tremor Trouble swallowing mild improvement Surgical History History of colonoscopy History of esophagogastroduodenoscopy (EGD) History of laryngoscopy direct with biopsy of left tongue base mass-07/21/23-Dr. Cunningham History of repair of hiatal hernia x 2 History of total abdominal hysterectomy and bilateral salpingo-oophorectomy Family History Mother Alzheimer disease Father No problems noted. Sister No problems noted. Brother , Half sibling Heart disease Sister No problems noted. 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 [employer]; How many Children do You have: 4 Other Information That Helps Us Care for You: No Feels Safe at Home: Yes Safety Concerns: Feels Safe At This Time Childhood Exposure to Second-Hand Smoke: Yes (Dad smoked; ) Assistive Devices: Cane and Walker Results & Data Vital Signs (Past 12 Hours) Vital Signs Temp Pulse Pulse Resp BP BP Pulse Ox 09/21/23 07:04 36.7 C 69 16 105/70 97 09/21/23 04:35 09/21/23 04:09 09/21/23 04:08 64 18 120/77 94 09/21/23 03:08 65 19 121/73 97 09/21/23 02:48 75 19 93 09/21/23 01:34 64 16 124/73 95 09/21/23 00:38 64 16 103/64 97 09/20/23 21:29 37.6 C H 83 18 102/70 93 Pulse Ox O2 Del Method O2 Del Method O2 Flow Rate 09/21/23 07:04 Nasal Cannula 2 09/21/23 04:35 Room Air 09/21/23 04:09 94 Room Air 09/21/23 04:08 Room Air 09/21/23 03:08 Room Air 09/21/23 02:48 Room Air 09/21/23 01:34 Room Air 09/21/23 00:38 Room Air 09/20/23 21:29 Room Air
--- NOTE | 2023-09-21 09:43 | Hospitalist Progress Note ---
Date of Service September 21, 2023 Assessment & Plan (1) Dysphagia: Plan: 2nd to #2 attempts at outpatient PEG placement by [facility] on 09/20 were not successful unfortunately gen surgery consult appreciated after much consideration gen surgery feels that she would be best served at a tertiary care center where IR capability is available as well as complex surgical services keep NPO in meantime IV fluids replace low K and low mag (2) Primary squamous cell carcinoma of base of tongue: Plan: s/p chemo-XRT (chemo - cisplatin) appreciate heme/onc consultation (3) Pancytopenia due to antineoplastic chemotherapy: Plan: cisplatin induced repeat cbc am cell lines low but acceptable (4) Nausea and vomiting: Plan: 2nd to chemotherapy, obstruction from her oral cancer, etc. zofran prn (5) Dehydration: Plan: 2nd to above IV fluids (6) Hypomagnesemia: Plan: replaced this am repeat mag level later in the day (7) Hypokalemia: Plan: replace serial BMPs (8) GERD (gastroesophageal reflux disease): Plan: change omeprazole to IV protonix (9) Severe protein-calorie malnutrition: Plan: 50 pounds of weight loss needs PEG tube placement and initiation of tube feedings Plan DVT proph - high risk of DVT - add lovenox Admission and Anticipated Discharge Date Admission Date: September 21, 2023 Subjective patient resting during the visit reports weakness & fatigue had low-grade temp overnight but she didn't realize she had such no rigors denies dyspnea or cough Physical Exam Physical Exam: gen - looks weak, dehydrated, but awake/alert mouth - MM dry; posterior throat irritation; tongue - dry neck - no JVD heart - RRR, s1 s2, no murmur lungs - CTA b/l; no rales; no wheeze abd - soft NT ND BS+ ext - no edema, pulses 2+ b/l Results & Data Results & Data Vital Signs (Past 12 Hours) Vital Signs Temp Pulse Resp BP Pulse Ox Pulse Ox O2 Del Method 09/21/23 08:17 Nasal Cannula 09/21/23 07:04 36.7 C 69 16 105/70 97 Nasal Cannula 09/21/23 04:35 Room Air 09/21/23 04:09 94 09/21/23 04:08 64 18 120/77 94 Room Air 09/21/23 03:08 65 19 121/73 97 Room Air 09/21/23 02:48 75 19 93 Room Air 09/21/23 01:34 64 16 124/73 95 Room Air 09/21/23 00:38 64 16 103/64 97 Room Air O2 Del Method O2 Flow Rate 09/21/23 08:17 2 09/21/23 07:04 2 09/21/23 04:35 09/21/23 04:09 Room Air 09/21/23 04:08 09/21/23 03:08 09/21/23 02:48 09/21/23 01:34 09/21/23 00:38 Laboratory Results Laboratory Results - last 24 hr 09/20/23 09/21/23 09/21/23 22:02 04:10 04:51 WBC 2.76 L RBC 3.41 L Hgb 10.6 L Hct 30.2 L MCV 88.6 MCH 31.1 MCHC 35.1 RDW Std Deviation 41.1 RDW Coeff of Maria Eguenia 13.0 Plt Count 108 L MPV 8.7 L Immature Gran % (Auto) 0.7 Neut % (Auto) 64.1 Lymph % (Auto) 17.8 [place] % (Auto) 15.6 Eos % (Auto) 1.4 Baso % (Auto) 0.4 Neut # (Auto) 1.77 Lymph # (Auto) 0.49 L [place] # (Auto) 0.43 Eos # (Auto) 0.04 Baso # (Auto) 0.01 Immature Gran # (Auto) 0.02 Sodium Potassium Chloride Carbon Dioxide Anion Gap BUN Creatinine Est Cr Clr Drug Dosing Est GFR ( Amer) Est GFR (Non-Af Amer) BUN/Creatinine Ratio Glucose Calcium Phosphorus Magnesium 1.4 L Troponin I High Sens 8.4 Albumin Lipase Urine Color Yellow Urine Appearance Clear Urine pH 5.5 Ur Specific [place] 1.012 Urine Protein Negative Urine Glucose (UA) Negative Urine Ketones 2+ H Urine Blood Negative Urine Nitrite Negative Urine Bilirubin Negative Urine Urobilinogen Negative Ur Leukocyte Esterase Trace H Urine WBC (Auto) 5-10 H Urine RBC (Auto) 0-4 U Hyaline Cast (Auto) 1-5 U Epithel Cells (Auto) >30 H Urine Bacteria (Auto) Negative SARS-CoV-2 (PCR) Influenza Type A (PCR) Influenza Type B (PCR) RSV (RT-PCR) 09/21/23 09/21/23 04:51 09:44 WBC RBC Hgb Hct MCV MCH MCHC RDW Std Deviation RDW Coeff of Maria Eugenia Plt Count MPV Immature Gran % (Auto) Neut % (Auto) Lymph % (Auto) [place] % (Auto) Eos % (Auto) Baso % (Auto) Neut # (Auto) Lymph # (Auto) [place] # (Auto) Eos # (Auto) Baso # (Auto) Immature Gran # (Auto) Sodium 140 Potassium 3.3 L Chloride 107 Carbon Dioxide 24 Anion Gap 9 BUN 12 Creatinine 0.96 Est Cr Clr Drug Dosing 61.0 Est GFR ( Amer) 73.5 Est GFR (Non-Af Amer) 63.4 BUN/Creatinine Ratio 12.5 Glucose 83 Calcium 8.6 Phosphorus 3.3 Magnesium Troponin I High Sens Albumin 3.4 Lipase Urine Color Urine Appearance Urine pH Ur Specific [place] Urine Protein Urine Glucose (UA) Urine Ketones Urine Blood Urine Nitrite Urine Bilirubin Urine Urobilinogen Ur Leukocyte Esterase Urine WBC (Auto) Urine RBC (Auto) U Hyaline Cast (Auto) U Epithel Cells (Auto) Urine Bacteria (Auto) SARS-CoV-2 (PCR) NEGATIVE Influenza Type A (PCR) Negative Influenza Type B (PCR) Negative RSV (RT-PCR) Negative PG Care Time/CCT Total # of Minutes Spent Total Time Spent with Patient: Total time spent is greater than 50% in coordination of care (as documented) at patient's floor/unit and/or counseling patient: Coding Level of Care Code None Diagnoses Dysphagia R13.10 Primary squamous cell carcinoma of base of tongue C01 Pancytopenia due to antineoplastic chemotherapy D61.810; T45.1X5A Nausea and vomiting R11.2 Dehydration E86.0 Hypomagnesemia E83.42 Hypokalemia E87.6 GERD (gastroesophageal reflux disease) K21.9 Severe protein-calorie malnutrition E43
[2023-09-21 10:44] LABS: Influenza A virus by PCR Negative (Neg); Influenza B virus by PCR Negative (Neg); RSV by PCR Negative (Neg); SARS CoV2 RNA(COVID-19) Ceph NEGATIVE (Negative)
[2023-09-21 17:41] LABS: BUN Creatinine Ratio 12.7 (10-20); Creatinine Clr Calc Pharmacy 74.1 ml/min; Est GFR (Non-African American) 80.2 ml/min; Magnesium 1.5 mg/dl (1.7-2.4); Potassium 3.8 mmol/L (3.5-5.1)
[2023-09-22] MEDS: NSS + 20MEQ KCL 20 MEQ/1,000 ML BAG IV SCH ×2 (00:04→15:08)
[2023-09-22] MEDS: MAGNESIUM SULFATE / D5W 1 GM/100 ML BAG IV SCH ×4 (00:04→15:04)
[2023-09-22] MEDS ORDERED: Nursing to Pharmacy Communication SCH (02:15)
[2023-09-22 07:05] LABS: Albumin Level 3.4 gm/dl (3.4-5.0); Calcium 8.8 mg/dl (8.6-10.3); Creatinine Clr Calc Pharmacy 78.1 ml/min; Est GFR (Non-African American) 85.4 ml/min; Magnesium 1.5 mg/dl (1.7-2.4); Phosphorus 3.5 mg/dl (2.5-4.9); Potassium 3.6 mmol/L (3.5-5.1)
[2023-09-22 09:28] LABS: Basophils # (auto) 0.02 K/uL (0.00-0.20); Basophils % (auto) 0.7 %; Eosinophils # (auto) 0.04 K/uL (0.00-0.50); Eosinophils % (auto) 1.4 %; Hematocrit (blood only) 29.3 % (37.0-47.0); Hemoglobin 10.4 g/dl (12.0-16.0); Immature Granulocytes # (auto) 0.01 K/uL (0.01-0.20); Immature Granulocytes % (auto) 0.4 %; Lymphocytes # (auto) 0.35 K/uL (1.20-3.40); Lymphocytes % (auto) 12.4 %; Mean Corpuscular Hemoglobin 30.9 pg (25.0-34.0); Mean Corpuscular Hgb Conc 35.5 g/dL (32.0-36.0); Mean Corpuscular Volume 86.9 fL (80.0-100.0); Mean Platelet Volume 9.6 fL (9.4-12.4); Monocytes # (auto) 0.36 K/uL (0.11-0.59); Monocytes % (auto) 12.7 %; Neutrophils # (auto) 2.05 K/uL (1.40-6.50); Neutrophils % (auto) 72.4 %; Platelet Count 109 K/uL (130-400); RDW Coefficient of Variation 12.9 % (11.5-14.5); RDW Standard Deviation 39.6 fL (36.4-46.3); Red Blood Count 3.37 M/uL (4.20-5.40); White Blood Count 2.83 K/ul (4.8-10.8)
[2023-09-22] MEDS ORDERED: TPN/PPN CONSULT PHARMACY STA (11:12)
[2023-09-22] MEDS ORDERED: DEXTROSE 10% 1,000 ML IV PRN (11:20)
[2023-09-22] MEDS ORDERED: TPN/PPN CONSULT PHARMACY PRN (11:33)
[2023-09-22] MEDS ORDERED: bisacodyL 10 MG SUPP PR STA (12:03)
--- NOTE | 2023-09-22 12:28 | Surgery Progress Note ---
Date of Service September 22, 2023 Assessment & Plan (1) Primary squamous cell carcinoma of base of tongue: Plan: Squamous cell carcinoma of the base of the tongue, requesting port placement and feeding access. Given her multiple prior foregut surgeries, I feel that she would be better served at a tertiary center where they may have more advanced techniques such as endoscopy or IR to perform this procedure. I would be happy to place a port sometime next week either as an inpatient or outpatient. Is important to note that a feeding tube will likely not relieve her nausea or vomiting surgery will sign off, call with questions or concerns Admission and Anticipated Discharge Date Admission Date: September 21, 2023 Subjective Squamous cell carcinoma of the base of the tongue, inability to tolerate swallowing, surgeries been consulted for feeding access. GI was unsuccessful likely due to her prior [place] fundoplication's. Physical Exam Constitutional: WD/WN, vitals as above + obese Gastrointestinal (Abdomen): normal bowel sounds, soft, nontender, no hepatosplenomegaly Inspection/Auscultation: + abdominal surgical scar Results & Data Vital Signs (Past 12 Hours) Vital Signs Temp Pulse Resp BP Pulse Ox O2 Del Method 09/22/23 07:17 36.7 C 71 16 109/72 92 Room Air PG Care Time/CCT Total # of Minutes Spent Total Time Spent with Patient: Total time spent is greater than 50% in coordination of care (as documented) at patient's floor/unit and/or counseling patient: Coding Level of Care Code 92900 SUB INP/OBS CARE 2/35MIN Diagnoses Primary squamous cell carcinoma of base of tongue C01
[2023-09-22] MEDS: ENOXAPARIN INJ 40 MG/0.4 ML SYR SQ SCH (12:30)
[2023-09-22] MEDS: PANTOprazole 40 MG in SYRINGE 0 ML IV SCH (12:32)
--- NOTE | 2023-09-22 13:48 | Pharmacy Report ---
Pharmacy PN Initial Consult - Date of Service September 22, 2023 - Scope Pharmacy has been consulted to manage parenteral nutrition orders and order appropriate labs. As part of the Nutrition Support Team guidelines, pharmacy will work in conjunction with dietary when determining the patients caloric needs. - Subjective The patient is a 62 year old F admitted on 09/21/23 00:35 for INTRACTABLE N/V, SEVERE DYSPHAGIA. Patient is to receive parenteral nutrition for prolonged NPO/dysphagia secondary to squamous cell carcinoma of tongue. - Objective Height: 5 ft 4 in Weight: 76.9 kg Intake & Output (Last 24Hrs): Intake & Output 09/20/23 09/21/23 09/22/23 09/23/23 06:59 06:59 06:59 06:59 Intake Total 1151 / 1151 1300 / 1300 100 / 100 Balance 1151 / 1151 1300 / 1300 100 / 100 Weight 76.9 kg 76.9 kg Laboratory Data (Last 24 Hrs):: 09/21/23 09/22/23 17:09 06:17 Sodium 138 139 Potassium 3.8 3.6 Chloride 106 105 Carbon Dioxide 23 22 BUN 10 9 Creatinine 0.79 0.75 Glucose 73 75 Calcium 9.0 8.8 Phosphorus 3.5 Magnesium 1.5 L 1.5 L Albumin 3.4 Nutrition Assessment:: Please refer to the Notes section of the EMR for the most recent appointment clerk note. - Assessment * VK is a 62 year old female w/ intractable nausea/vomiting and dysphagia secondary to squamous cell carcinoma of tongue * PEG tube placement attempted on 09/20/23, but was unsuccessful. Plan is for PPN now that enteral nutrition has been delayed. * Macronutrient recommendations provided by dietary, appreciated * Plan is to start at goal rate of 70 mL/hr to provide ~1071 Kcal * Electrolytes largely WNL, hypomagnesemia this AM (1.5 mg/dL) and repleted with 3 g IV magnesium sulfate * IV fluids currently infusing and will stop at time of PPN initiation. No additional fluids at this time per hospitalist. - Plan For day 1 of PN administration, the following will be ordered: Macronutrients Amino acids 71 grams/day Dextrose 84 grams/day Lipids 50 grams/day Micronutrients Combined electrolytes 40 mL - contains 35 mEq Na, 20 meq K, 4.5 mEq Ca, 5 mEq Mg, 35 mEq Cl, 29.5 mEq acetate per 20 mL Sodium phosphate 30 MMol Potassium acetate 50 mEq Magnesium sulfate 4.06 mEq Multivitamins 10 mL Trace Elements 10 mL Additional additives: thiamine 100 mg Total volume 1768 mL to be infused over 24 hrs will provide 1071 kcal/day Final osmolarity 881 mOsm/L (maximum for PPN is 900 mOsm/L) Labs to be ordered per PN order protocol Pharmacy will follow and adjust parenteral nutrition orders on a daily basis. Thank you.
--- NOTE | 2023-09-22 15:01 | Hospitalist Progress Note ---
Date of Service September 22, 2023 Assessment & Plan (1) Dysphagia: Plan: 2nd to #2 attempts at outpatient PEG placement by [facility] on 09/20 were not successful unfortunately gen surgery consult appreciated after much consideration gen surgery feels that she would be best served at a tertiary care center where IR capability is available as well as complex surgical services as per the subjective portion of this note [facility] has accepted pt in transfer for feeding tube placement pt and daughter aware keep NPO in meantime start PPN today replace low mag (2) Primary squamous cell carcinoma of base of tongue: Plan: s/p chemo-XRT (chemo - cisplatin) appreciate heme/onc consultation (3) Pancytopenia due to antineoplastic chemotherapy: Plan: cisplatin induced repeat cbc am cell lines remain low but acceptable (4) Nausea and vomiting: Plan: 2nd to chemotherapy, obstruction from her oral cancer, etc. improved zofran prn (5) Dehydration: Plan: 2nd to above resolved (6) Hypomagnesemia: Plan: refractory to copious replacement persistently low mag --> due to cisplatin induced nephrotoxicity ?? replace again today --> 3 gms mag sulfate IV x 1 repeat level am (7) Hypokalemia: Plan: replaced resolved (8) GERD (gastroesophageal reflux disease): Plan: cont IV protonix (9) Severe protein-calorie malnutrition: Plan: 50 pounds of weight loss 2nd to #2 needs PEG tube placement and initiation of tube feedings in meantime --> start PPN, pharmacy is aware (10) Constipation: Plan: dulcolax suppos x 1 today Plan DVT proph - high risk of DVT - lovenox 40mg daily daughter updated this evening Admission and Anticipated Discharge Date Admission Date: September 21, 2023 Subjective patient overall feels better no further vomiting no BM since 09/14 ?? no abdominal pain c/o mild mouth soreness - declines magic mouthwash denies any new complaints we discussed transfer to tertiary care for IR PEG placement or other means she prefers [facility] for such following my visit I called [facility] spoke with GI - Dr Centeno; spoke with Dr Brooke Santiago, internal medicine explained need for PEG placement or other type of feeding tube explained unsuccessful endoscopically placed PEG earlier this week - possibly due to prior h/o [place] x [address] Santiago plan - she will remain at [facility] until Monday at which point she likely will transfer to [facility] with hopes for the procedure on Monday patient made aware of the above late in the day I spoke with the pt's daughter and answered all questions; she is aware of the above pending transfer Review of Systems Review of Systems: gen - no further fevers cv - no chest pain pulm - no cough GI - no abd pain - no dysuria Physical Exam Physical Exam: gen - looks better than yesterday, NAD, watching TV in bed mouth - MM moist today; posterior throat irritation neck - no JVD heart - RRR, s1 s2, no murmur lungs - CTA b/l; no rales; no wheeze abd - soft NT ND BS+ ext - no edema, pulses 2+ b/l Results & Data Results & Data Vital Signs (Past 12 Hours) Vital Signs Temp Pulse Resp BP Pulse Ox O2 Del Method 09/22/23 14:31 37 C 58 L 16 108/67 96 Room Air 09/22/23 13:26 66 96 Room Air 09/22/23 07:17 36.7 C 71 16 109/72 92 Room Air Laboratory Results Laboratory Results - last 24 hr 09/22/23 09/22/23 06:17 06:17 WBC 2.83 L RBC 3.37 L Hgb 10.4 L Hct 29.3 L MCV 86.9 MCH 30.9 MCHC 35.5 RDW Std Deviation 39.6 RDW Coeff of Maria Eugenia 12.9 Plt Count 109 L MPV 9.6 Immature Gran % (Auto) 0.4 Neut % (Auto) 72.4 Lymph % (Auto) 12.4 [place] % (Auto) 12.7 Eos % (Auto) 1.4 Baso % (Auto) 0.7 Neut # (Auto) 2.05 Lymph # (Auto) 0.35 L [place] # (Auto) 0.36 Eos # (Auto) 0.04 Baso # (Auto) 0.02 Immature Gran # (Auto) 0.01 Absolute Nucleated RBC Nucleated RBC % (auto) Neutrophils % (Manual) Band Neutrophils % Lymphocytes % (Manual) Prolymphocyte % Reactive Lymphs % (Man) Monocytes % (Manual) Eosinophils % (Manual) Basophils % (Manual) Metamyelocytes % (Man) Myelocytes % (Man) Promyelocytes % (Man) Blast Cells % (Manual) Plasma Cell % (Manual) Other Cells % Nucleated RBC % Neutrophils # (Manual) Band Neutrophils # Total Absolute Neuts Lymphocytes # (Manual) Prolymphocyte # Reactive Lymphs # Total Abs Lymphocytes Monocytes # (Manual) Eosinophils # (Manual) Basophils # (Manual) Metamyelocytes # (Man) Myelocytes # (Manual) Promyelocytes # (Man) Blast Cells # (Man) Plasma Cell # (Manual) Other Cells # Nucleated RBCs # (Man) Hypersegmented Neuts Hyposegmented Neuts Hypogranular Neuts Large Granular Lymphs # Lrg Granular Lymphs Hairy Cells Smudge Cells Toxic Granulation Toxic Vacuolation Dohle Bodies Amelie Rods Platelet Estimate Hypogranular Platelets Giant Platelets Platelet Satelliting RBC Morphology Polychromasia Hypochromasia Poikilocytosis Basophilic Stippling Anisocytosis Microcytosis Macrocytosis Spherocytes Pappenheimer Bodies Sickle Cells Target Cells Tear Drop Cells Ovalocytes Stomatocytes [place] Bodies Echinocytes Acanthocytes (Spur) Rouleaux RBC Agglutinates Schistocytes Sezary Cell Sodium 139 Potassium 3.6 Chloride 105 Carbon Dioxide 22 Anion Gap 12 H BUN 9 Creatinine 0.75 Est Cr Clr Drug Dosing 78.1 Est GFR ( Amer) 99.0 Est GFR (Non-Af Amer) 85.4 BUN/Creatinine Ratio 12.0 Glucose 75 POC Glucose Calcium 8.8 Phosphorus 3.5 Magnesium 1.5 L Albumin 3.4 Blood Parasites ID 09/22/23 09/22/23 12:00 18:04 WBC RBC Hgb Hct MCV MCH MCHC RDW Std Deviation RDW Coeff of Maria Eugenia Plt Count MPV Immature Gran % (Auto) Neut % (Auto) Lymph % (Auto) [place] % (Auto) Eos % (Auto) Baso % (Auto) Neut # (Auto) Lymph # (Auto) [place] # (Auto) Eos # (Auto) Baso # (Auto) Immature Gran # (Auto) Absolute Nucleated RBC Nucleated RBC % (auto) Neutrophils % (Manual) Band Neutrophils % Lymphocytes % (Manual) Prolymphocyte % Reactive Lymphs % (Man) Monocytes % (Manual) Eosinophils % (Manual) Basophils % (Manual) Metamyelocytes % (Man) Myelocytes % (Man) Promyelocytes % (Man) Blast Cells % (Manual) Plasma Cell % (Manual) Other Cells % Nucleated RBC % Neutrophils # (Manual) Band Neutrophils # Total Absolute Neuts Lymphocytes # (Manual) Prolymphocyte # Reactive Lymphs # Total Abs Lymphocytes Monocytes # (Manual) Eosinophils # (Manual) Basophils # (Manual) Metamyelocytes # (Man) Myelocytes # (Manual) Promyelocytes # (Man) Blast Cells # (Man) Plasma Cell # (Manual) Other Cells # Nucleated RBCs # (Man) Hypersegmented Neuts Hyposegmented Neuts Hypogranular Neuts Large Granular Lymphs # Lrg Granular Lymphs Hairy Cells Smudge Cells Toxic Granulation Toxic Vacuolation Dohle Bodies Amelie Rods Platelet Estimate Hypogranular Platelets Giant Platelets Platelet Satelliting RBC Morphology Polychromasia Hypochromasia Poikilocytosis Basophilic Stippling Anisocytosis Microcytosis Macrocytosis Spherocytes Pappenheimer Bodies Sickle Cells Target Cells Tear Drop Cells Ovalocytes Stomatocytes [place] Bodies Echinocytes Acanthocytes (Spur) Rouleaux RBC Agglutinates Schistocytes Sezary Cell Sodium Potassium Chloride Carbon Dioxide Anion Gap BUN Creatinine Est Cr Clr Drug Dosing Est GFR ( Amer) Est GFR (Non-Af Amer) BUN/Creatinine Ratio Glucose POC Glucose 79 86 Calcium Phosphorus Magnesium Albumin Blood Parasites ID PG Care Time/CCT Total # of Minutes Spent Total Time Spent with Patient: Total time spent is greater than 50% in coordination of care (as documented) at patient's floor/unit and/or counseling patient: Coding Level of Care Code 71702 SUB INP/OBS CARE 3/50MIN Diagnoses Dysphagia R13.10 Primary squamous cell carcinoma of base of tongue C01 Pancytopenia due to antineoplastic chemotherapy D61.810; T45.1X5A Nausea and vomiting R11.2 Dehydration E86.0 Hypomagnesemia E83.42 Hypokalemia E87.6 GERD (gastroesophageal reflux disease) K21.9 Severe protein-calorie malnutrition E43 Constipation K59.00
[2023-09-22] MEDS ORDERED: PERIPHERAL TPN IV SCH (16:00)
[2023-09-22] MEDS ORDERED: [UNRECOGNIZED DRUG - OTHER] IV SCH (16:00)
[2023-09-22] MEDS ORDERED: CLINOLIPID 20% IV FAT EMULSION 250 ML IV SCH (16:00)
--- NOTE | 2023-09-22 21:06 | Electrocardiogram Report ---
Test Reason : Blood Pressure : / mmHG Vent. Rate : 060 BPM Atrial Rate : 060 BPM P-R Int : 212 ms QRS Dur : 086 ms QT Int : 448 ms P-R-T Axes : 047 004 018 degrees QTc Int : 448 ms Sinus rhythm with 1st degree A-V block Otherwise normal ECG When compared with ECG of 17-SEP-2023 18:53, No significant change was found Confirmed by Jose Zapata ([id number]) on 09/22/2023 9:06:10 PM Referred By: REFERRED SELF Confirmed By:Jose Zapata
[2023-09-22] MEDS ORDERED: STOP CLINOLIPID SCH (22:00)
[2023-09-23 07:12] LABS: Basophils # (auto) 0.01 K/uL (0.00-0.20); Basophils % (auto) 0.4 %; Eosinophils # (auto) 0.03 K/uL (0.00-0.50); Eosinophils % (auto) 1.1 %; Hematocrit (blood only) 29.9 % (37.0-47.0); Hemoglobin 10.7 g/dl (12.0-16.0); Immature Granulocytes # (auto) 0.01 K/uL (0.01-0.20); Immature Granulocytes % (auto) 0.4 %; Lymphocytes # (auto) 0.31 K/uL (1.20-3.40); Lymphocytes % (auto) 11.4 %; Mean Corpuscular Hemoglobin 30.7 pg (25.0-34.0); Mean Corpuscular Hgb Conc 35.8 g/dL (32.0-36.0); Mean Corpuscular Volume 85.7 fL (80.0-100.0); Mean Platelet Volume 8.8 fL (9.4-12.4); Monocytes # (auto) 0.36 K/uL (0.11-0.59); Monocytes % (auto) 13.2 %; Neutrophils % (auto) 73.5 %; Platelet Count 111 K/uL (130-400); RDW Coefficient of Variation 13.1 % (11.5-14.5); RDW Standard Deviation 37.5 fL (36.4-46.3); Red Blood Count 3.49 M/uL (4.20-5.40); White Blood Count 2.72 K/ul (4.8-10.8)
[2023-09-23 07:17] LABS: Albumin Level 3.7 gm/dl (3.4-5.0); BUN Creatinine Ratio 15.4 (10-20); Calcium 9.2 mg/dl (8.6-10.3); Creatinine Clr Calc Pharmacy 75.1 ml/min; Est GFR (African American) 94.4 ml/min; Est GFR (Non-African American) 81.5 ml/min; Magnesium 1.4 mg/dl (1.7-2.4); Phosphorus 4.3 mg/dl (2.5-4.9); Potassium 3.6 mmol/L (3.5-5.1)
[2023-09-23] MEDS: ENOXAPARIN INJ 40 MG/0.4 ML SYR SQ SCH (09:15)
[2023-09-23] MEDS: PANTOprazole 40 MG in SYRINGE 0 ML IV SCH (13:19)
[2023-09-23] MEDS: MAGNESIUM SULFATE / D5W 1 GM/100 ML BAG IV SCH ×3 (13:23→17:18)
[2023-09-23] MEDS ORDERED: CLINOLIPID 20% IV FAT EMULSION 250 ML IV SCH (16:00)
[2023-09-23] MEDS ORDERED: [UNRECOGNIZED DRUG - OTHER] IV SCH (16:00)
[2023-09-23] MEDS ORDERED: PERIPHERAL TPN IV SCH (16:00)
--- NOTE | 2023-09-23 20:08 | Hospitalist Progress Note ---
Date of Service September 23, 2023 Assessment & Plan (1) Dysphagia: Plan: 2nd to #2 attempts at outpatient PEG placement by [facility] on 09/20 were not successful unfortunately gen surgery consult appreciated after much consideration gen surgery feels that she would be best served at a tertiary care center where IR capability is available as well as complex surgical services to perform PEG placement [facility] tent[facility] accepted pt in transfer for feeding tube placement; the transfer will likely happen tomorrow 09/25/23 pt and daughter aware keep NPO cont PPN replace low mag (2) Primary squamous cell carcinoma of base of tongue: Plan: s/p chemo-XRT (chemo - cisplatin) appreciate heme/onc consultation (3) Pancytopenia due to antineoplastic chemotherapy: Plan: cisplatin induced cell lines remain acceptable cbc am (4) Nausea and vomiting: Plan: 2nd to chemotherapy, obstruction from her oral cancer, etc. resolved no recurrence zofran prn (5) Dehydration: Plan: 2nd to above resolved remains on PPN (6) Hypomagnesemia: Plan: refractory to copious replacement persistently low mag --> suspect due to cisplatin induced nephrotoxicity replace again today --> 3 gms mag sulfate IV x 1 also receiving mag in PPN repeat level am if mag level remains refractory - once able to take medications - amiloride?? (7) Hypokalemia: Plan: replaced resolved (8) GERD (gastroesophageal reflux disease): Plan: cont IV protonix (9) Severe protein-calorie malnutrition: Plan: 50 pounds of weight loss 2nd to #2 needs PEG tube placement and initiation of tube feedings in meantime --> cont PPN pharmacy assistance appreciated (10) Constipation: Plan: dulcolax suppos x 1 yesterday with good results Plan DVT proph - high risk of DVT - lovenox 40mg daily daughter updated this evening at bedside will contact [facility] again in am to confirm transfer of note - patient also needs a-port placement either at [facility] or here at [facility] Admission and Anticipated Discharge Date Admission Date: September 21, 2023 Subjective no new events resting comfortably feels stronger and more hydrated today than previous no pain in any location mouth/throat/tongue soreness also improved had BM with dulcolax suppos yesterday daughter at bedside Review of Systems Review of Systems: gen - no fevers or chills cv - no chest pain pulm - no cough or dyspnea or [facility] - no abd pain Physical Exam Physical Exam: gen - looks good today; NAD mouth - MMM; posterior throat irritation/erythema improved; no obvious thrush neck - no JVD heart - RRR, s1 s2, no murmur lungs - CTA b/l; no rales; no wheeze abd - soft NT ND BS+ ext - no edema, pulses 2+ b/l Results & Data Results & Data Vital Signs (Past 12 Hours) Vital Signs Temp Pulse Resp BP Pulse Ox O2 Del Method 09/23/23 14:49 36.6 C 68 17 97 Room Air 09/23/23 14:26 37.4 C 71 17 104/69 93 Room Air Laboratory Results Laboratory Results - last 24 hr 09/22/23 09/23/23 09/23/23 23:53 06:04 06:23 WBC 2.72 L RBC 3.49 L Hgb 10.7 L Hct 29.9 L MCV 85.7 MCH 30.7 MCHC 35.8 RDW Std Deviation 37.5 RDW Coeff of Maria Eugenia 13.1 Plt Count 111 L MPV 8.8 L Immature Gran % (Auto) 0.4 Neut % (Auto) 73.5 Lymph % (Auto) 11.4 [place] % (Auto) 13.2 Eos % (Auto) 1.1 Baso % (Auto) 0.4 Neut # (Auto) 2.00 Lymph # (Auto) 0.31 L [place] # (Auto) 0.36 Eos # (Auto) 0.03 Baso # (Auto) 0.01 Immature Gran # (Auto) 0.01 Sodium Potassium Chloride Carbon Dioxide Anion Gap BUN Creatinine Est Cr Clr Drug Dosing Est GFR ( Amer) Est GFR (Non-Af Amer) BUN/Creatinine Ratio Glucose POC Glucose 89 106 H Calcium Phosphorus Magnesium Albumin Triglycerides 09/23/23 09/23/23 09/23/23 06:23 11:14 11:48 WBC RBC Hgb Hct MCV MCH MCHC RDW Std Deviation RDW Coeff of Maria Eugenia Plt Count MPV Immature Gran % (Auto) Neut % (Auto) Lymph % (Auto) [place] % (Auto) Eos % (Auto) Baso % (Auto) Neut # (Auto) Lymph # (Auto) [place] # (Auto) Eos # (Auto) Baso # (Auto) Immature Gran # (Auto) Sodium 139 Potassium 3.6 Chloride 104 Carbon Dioxide 27 Anion Gap 8 BUN 12 Creatinine 0.78 Est Cr Clr Drug Dosing 75.1 Est GFR ( Amer) 94.4 Est GFR (Non-Af Amer) 81.5 BUN/Creatinine Ratio 15.4 Glucose 110 H POC Glucose 116 H Calcium 9.2 Phosphorus 4.3 Magnesium 1.4 L Albumin 3.7 Triglycerides 109 09/23/23 17:48 WBC RBC Hgb Hct MCV MCH MCHC RDW Std Deviation RDW Coeff of Maria Eugenia Plt Count MPV Immature Gran % (Auto) Neut % (Auto) Lymph % (Auto) [place] % (Auto) Eos % (Auto) Baso % (Auto) Neut # (Auto) Lymph # (Auto) [place] # (Auto) Eos # (Auto) Baso # (Auto) Immature Gran # (Auto) Sodium Potassium Chloride Carbon Dioxide Anion Gap BUN Creatinine Est Cr Clr Drug Dosing Est GFR ( Amer) Est GFR (Non-Af Amer) BUN/Creatinine Ratio Glucose POC Glucose 122 H Calcium Phosphorus Magnesium Albumin Triglycerides PG Care Time/CCT Total # of Minutes Spent Total Time Spent with Patient: Total time spent is greater than 50% in coordination of care (as documented) at patient's floor/unit and/or counseling patient: Coding Level of Care Code 34093 SUB INP/OBS CARE 12/21MIN Diagnoses Dysphagia R13.10 Primary squamous cell carcinoma of base of tongue C01 Pancytopenia due to antineoplastic chemotherapy D61.810; T45.1X5A Nausea and vomiting R11.2 Dehydration E86.0 Hypomagnesemia E83.42 Hypokalemia E87.6 GERD (gastroesophageal reflux disease) K21.9 Severe protein-calorie malnutrition E43 Constipation K59.00
[2023-09-23] MEDS ORDERED: STOP CLINOLIPID SCH (22:00)
[2023-09-24] MEDS: ENOXAPARIN INJ 40 MG/0.4 ML SYR SQ SCH (07:20)
[2023-09-24 08:23] LABS: Basophils # (auto) 0.01 K/uL (0.00-0.20); Basophils % (auto) 0.3 %; Eosinophils # (auto) 0.03 K/uL (0.00-0.50); Eosinophils % (auto) 0.9 %; Hematocrit (blood only) 34.8 % (37.0-47.0); Immature Granulocytes # (auto) 0.01 K/uL (0.01-0.20); Immature Granulocytes % (auto) 0.3 %; Lymphocytes # (auto) 0.34 K/uL (1.20-3.40); Lymphocytes % (auto) 10.4 %; Mean Corpuscular Hemoglobin 30.5 pg (25.0-34.0); Mean Corpuscular Hgb Conc 34.5 g/dL (32.0-36.0); Mean Corpuscular Volume 88.3 fL (80.0-100.0); Monocytes # (auto) 0.33 K/uL (0.11-0.59); Monocytes % (auto) 10.1 %; Neutrophils # (auto) 2.55 K/uL (1.40-6.50); Platelet Count 110 K/uL (130-400); RDW Coefficient of Variation 13.3 % (11.5-14.5); RDW Standard Deviation 40.3 fL (36.4-46.3); Red Blood Count 3.94 M/uL (4.20-5.40); White Blood Count 3.27 K/ul (4.8-10.8)
[2023-09-24 08:42] LABS: BUN Creatinine Ratio 19.8 (10-20); Calcium 9.7 mg/dl (8.6-10.3); Creatinine Clr Calc Pharmacy 64.3 ml/min; Est GFR (African American) 78.4 ml/min; Est GFR (Non-African American) 67.6 ml/min; Magnesium 1.9 mg/dl (1.7-2.4); Phosphorus 4.5 mg/dl (2.5-4.9); Potassium 4.1 mmol/L (3.5-5.1)
[2023-09-24] MEDS: PANTOprazole 40 MG in SYRINGE 0 ML IV SCH (10:41)
[2023-09-24] MEDS ORDERED: Nursing to Pharmacy Communication SCH (12:15)
--- NOTE | 2023-09-24 13:54 | Discharge Summary ---
Date of Service date of admission - September 21, 2023 date of discharge - September 24, 2023 Admission HPI Per Admitting Provider The patient is a 62-year-old female with a past medical history including primary squamous cell carcinoma of the base of the tongue, sial adenitis, GERD, tremor, mass of throat and severe dysphagia. She had a failed attempt of placement of PEG tube earlier in the day by gastroenterology via EGD. Patient was to be scheduled to see general surgery in the outpatient setting, however, due to severe nausea vomiting, and signs of dehydration, she was brought to the emergency department for assessment Principal Diagnosis 1. dysphagia due to squamous cell cancer of the base of the tongue 2. nausea / vomiting with resulting dehydration - due to effects from chemotherapy, dysphagia, etc - resolved 3. severe protein calorie malnutrition 4. hypomagnesemia - resolved 5. hypokalemia - resolved 6. GERD 7. constipation 8. pancytopenia due to antineoplastic chemotherapy (cisplatin) 9. radiation therapy for squamous cell cancer of tongue 10. h/o [place] fundoplication 11. h/o [place] fundoplication revision Discharge Exam gen - NAD, pleasant mouth - MMM; posterior throat irritation/erythema improved; no obvious thrush neck - no JVD heart - RRR, s1 s2, no murmur lungs - CTA b/l; no rales; no wheeze abd - soft NT ND BS+ ext - no edema, pulses 2+ b/l psych - a/o x 3 Discharge Data Allergies Allergy/AdvReac Type Severity Reaction Status Date / Time No Known Allergies Allergy Verified 09/28/23 10:55 Consultations Nutrition General Surgery Hematology Ordered Studies Chest X-Ray 09/20/23 23:23 XR chest 1V portable CLINICAL HISTORY: Nausea. COMPARISON STUDY: Chest CT and chest radiograph September 17, 2023. FINDINGS: Lung volumes are normal. Lungs are clear. There is no pneumothorax or pleural effusion. Cardiac size is normal. Mediastinal contours are normal. There is no evidence for pulmonary edema. IMPRESSION: No acute cardiopulmonary findings. ACT 112: Negative or not required by law. Electronically signed by: Sage Garcia M.D. 09/21/2023 7:01 AM KUB X-Ray 09/21/23 00:03 KUB HISTORY: Acute nausea with vomiting N/V COMPARISON: CT 09/17/2023 FINDINGS: Nonobstructive bowel gas pattern. No renal calculi. No ureteral calculi. No pneumoperitoneum or pneumatosis. No fracture. IMPRESSION: Nonobstructive bowel gas pattern. ACT 112: Negative or not required by law. The above report was generated using voice recognition software. It may contain grammatical, syntax or spelling errors. Electronically signed by: Lamont Leone M.D. 09/21/2023 7:17 AM Hospital Course (1) Dysphagia: 2nd to #2 attempts at outpatient PEG placement by [facility] on 09/20/23 were not successful unfortunately part of the difficulty in placing the PEG on 09/20/23 may have been due to prior [place] fundoplication surgery and surgical revision of the [place] general surgery was consulted, and after much discussion & consideration, it was felt that the patient would be best served at a tertiary care center where IR capability is available as well as complex surgical services to perform PEG placement [facility] was thus contacted and Mrs Shah was accepted in transfer for feeding tube placement (2) Primary squamous cell carcinoma of base of tongue: s/p chemo-XRT (chemo - cisplatin) she received 1 radiation treatment on 09/22/23 during her hospitalization (3) Pancytopenia due to antineoplastic chemotherapy: cisplatin induced cell lines were low but acceptable while here (4) Nausea and vomitinnd to chemotherapy, obstruction from her oral cancer, etc. resolved no recurrence during the hospitalization (5) Dehydration: 2nd to above resolved (6) Hypomagnesemia: initially refractory to copious IV replacement persistently low mag --> suspect due to cisplatin induced nephrotoxicity after replacement, however, mag level was 1.9 prior to transfer to [facility] if mag level drops once again consider amiloride (7) Hypokalemia: replaced resolved (8) GERD (gastroesophageal reflux disease): cont PPI (9) Severe protein-calorie malnutrition: 50 pounds of weight loss 2nd to #2 needs PEG tube placement and initiation of tube feedings while awaiting transfer to tertiary care she was initiated on PPN (10) Constipation: dulcolax suppos x 1 with good results Plan of note - patient needs A-port placement either at [facility] or here at [facility] in order to facilitate future chemotherapy Total Time Total Time Spent Total Time Spent (In Minutes): 60 Discharge Plan Discharge Items Patient Disposition: Transfer Acute Care Hospital Reason For Visit: Dysphagia, nausea, vomiting, cancer of tongue Discharge Diagnosis: 1. dysphagia due to squamous cell cancer of the base of the tongue 2. nausea / vomiting with resulting dehydration - due to effects from chemotherapy, dysphagia, etc - resolved 3. severe protein calorie malnutrition 4. hypomagnesemia - resolved 5. hypokalemia - resolved 6. GERD 7. constipation 8. pancytopenia due to antineoplastic chemotherapy (cisplatin) 9. radiation therapy for squamous cell cancer of tongue 10. h/o [place] fundoplication 11. h/o [place] fundoplication revision Activity: As commented below Activity Comment: activity as tolerated Non-emergency contact: Primary Care Provider and Oncologist Call non-emergency contact if: you have any medication questions, your symptoms worsen, your pain is not controlled, your pain is worsening and you have a fever Follow-up/Referrals: Alina Ryder M.D. [Primary Care Provider] - Fifi Felix MD [Physician] - (follow-up with Dr Felix as scheduled ) Diet: Nothing by Mouth Addtl Attending Provider Instructions: Ms Shah was hospitalized due to nausea, vomiting, dehydration, and malnutrition related to recently diagnosed squamous cell cancer of the tongue. She has had severe dysphagia due to her oral cavity cancer. Attempts at endoscopically placed PEG tube placement on 09/20/23 at [facility] were unsuccessful. Low magnesium and low potassium were replaced. She received PPN while here due to malnutrition. Nausea & vomiting resolved. Dehydration resolved. Pancytopenia due to her cisplatin chemotherapy has been stable. Ms Shah will ultimately need a-port placement for ongoing chemotherapy. I would like to thank Dr Brooke Santiago at [facility] for accepting Ms Shah in transfer for placement of PEG tube (or g-tube). Further instructions will follow after her stay at [facility]. Pending Studies at Discharge: No Stand-Alone Forms: My [facility] Skilled Items Patient informed of condition?: Yes DNR: No Discharge Level of Care: Other Communicable Disease: No Discharge Prognosis: Stable Lines: Peripheral IV Urinary Catheter: No Medications and DC Order Prescriptions: Continued Magic Mouthwash 300 mL mouthwash 10 ml mucous membrane UD PRN (Reason: dysphagia) Patient Comments: haven't used in awhile Held acetaminophen [Tylenol] 325 mg Tablet 325 mg PO QID PRN (Reason: Pain) Hold Instructions: hold until PEG is placed omeprazole 20 mg Capsule,Delayed Release(Dr/Ec) 20 mg PO QAM Hold Instructions: hold until PEG is placed oxycodone 5 mg/5 mL solution 5 mg PO Q6 PRN (Reason: Pain) Hold Instructions: hold until PEG is placed ondansetron HCl 8 mg Tablet 8 mg PO Q8 PRN (Reason: n/v) Hold Instructions: hold until PEG is placed olanzapine 2.5 mg Tablet 2.5 mg PO UD Hold Instructions: hold until PEG is placed Patient Comments: one on day of chemo and one per day for 3 days after chemo. Rx Instructions: 1 tablet on day of chemo and 1 per day for 3 days after chemo propranolol 60 mg capsule,extended release 24 hr 60 mg PO DAILY Hold Instructions: hold until PEG is placed Rx Instructions: takes 4 days per week, days of chemo Discharge Orders: Discharge Order (Routine); Ordered 09/24/23 Ordered By: Wild Nelson Admission Data Admit Date/Time: 09/21/23 00:35 Attending Provider: Wild Nelson Admit Provider: Hans Keith Primary Care Provider: Alina Ryder Other Providers: Hans Keith; Romero Solis; Fifi Felix Coding Level of Care Code 30040 INP/OBS DISCH >30 MIN Diagnoses Dysphagia R13.10 Primary squamous cell carcinoma of base of tongue C01 Pancytopenia due to antineoplastic chemotherapy D61.810; T45.1X5A Nausea and vomiting R11.2 Dehydration E86.0 Hypomagnesemia E83.42 Hypokalemia E87.6 GERD (gastroesophageal reflux disease) K21.9 Severe protein-calorie malnutrition E43 Constipation K59.00
== END 2023-09-24 18:19 | disposition short-term general hospital (02) | DRG 640 ==
LOC: ED 21:09 → EDINP 09-21 00:35 → SUATTDRO 09-21 00:35 → 3W 09-21 04:35